=== PATIENT | female | born 1945 | race Caucasian/White ===

== ENCOUNTER 2017-06-20 13:16 | Inpatient (IN) | payer MEDICARE ==
--- NOTE | 2017-06-20 14:05 | ED ---
General Adult HPI - General Chief complaint: Skin/Abscess/Foreign Body Stated complaint: Abscess Time Seen by Provider: 06/20/17 13:46 Source: patient, RN notes reviewed Mode of arrival: ambulatory Limitations: no limitations - History of Present Illness Initial comments: 72-year-old female presents to the emergency department with a chief complaint of abscess to the groin area. Patient states she's had this since the second. Patient states just been getting larger and larger. Patient states that she went to her doctor was referred here. She denies any fever chills. She states she does note some burning with urination but she was recently diagnosed with a UTI. They were concerned due to the size and the discomfort so they thought they should be seen. Patient denies any recent fever, chills, shortness of breath, chest pain, back pain, abdominal pain, nausea vomiting, numbness or tingling, dysuria or hematuria, constipation or diarrhea, headaches or visual changes, or any other current symptoms. - Related Data Home Medications Medication Instructions Recorded Confirmed No Known Home Medications [No 06/20/17 06/20/17 Known Home Medications] Allergies Allergy/AdvReac Type Severity Reaction Status Date / Time iodine Allergy Rash/Hives Verified 06/20/17 13:37 Penicillins Allergy Rash/Hives Verified 06/20/17 13:37 shellfish derived Allergy Rash/Hives Verified 06/20/17 13:37 Sulfa (Sulfonamide Allergy Unknown Verified 06/20/17 13:37 Antibiotics) Childhood aspirin AdvReac Nausea & Verified 06/20/17 13:37 Vomiting codeine AdvReac Unknown Verified 06/20/17 13:37 Review of Systems ROS Statement: Those systems with pertinent positive or pertinent negative responses have been documented in the HPI. ROS Other: All systems not noted in ROS Statement are negative. Past Medical History Past Medical History: Diabetes Mellitus, Hypertension, Musculoskeletal Disorder Additional Past Medical History / Comment(s): scarlet fever History of Any Multi-Drug Resistant Organisms: None Reported Past Surgical History: Section, Cholecystectomy Additional Past Surgical History / Comment(s): oral Past Psychological History: Anxiety, Depression Smoking Status: Former smoker Past Alcohol Use History: None Reported Past Drug Use History: None Reported General Exam Limitations: no limitations General appearance: alert, in no apparent distress ENT exam: Present: normal exam, mucous membranes moist Neck exam: Present: normal inspection. Absent: tenderness, meningismus, lymphadenopathy Respiratory exam: Present: normal lung sounds bilaterally. Absent: respiratory distress, wheezes, rales, rhonchi, stridor Cardiovascular Exam: Present: regular rate, normal rhythm, normal heart sounds. Absent: systolic murmur, diastolic murmur, rubs, gallop, clicks GI/Abdominal exam: Present: soft, normal bowel sounds. Absent: distended, tenderness, guarding, rebound, rigid Rectal exam: Present: other (Patient appears to have an abscess to the right gluteal area.) Extremities exam: Present: normal inspection, full ROM, normal capillary refill. Absent: tenderness, pedal edema, joint swelling, calf tenderness Back exam: Present: normal inspection Neurological exam: Present: alert, oriented X3 Skin exam: Present: warm, dry, intact, normal color. Absent: rash Course Vital Signs 06/20/17 13:21 Temperature 99.2 F Pulse Rate 94 Respiratory 18 Rate Blood Pressure 216/90 O2 Sat by Pulse 96 Oximetry Medical Decision Making - Medical Decision Making 72-year-old female gluteal abscess. At this time the patient's CAT scan is reviewed that does show an extensive phlegmon to the lower buttock that is measuring 4 x 2 cm however no visual obvious abscess is identified. At this time we will admit the patient for IV antibiotics due to her history of diabetes and the extensiveness of this. Dr. Heredia was contacted by [facility] they do agree to the admission. This time we are pending lab work at the time of admission. - Lab Data Result diagrams: 06/20/17 15:19 06/20/17 15:19 Lab Results 06/20/17 06/20/17 06/20/17 Range/Units 15:19 15:19 15:19 WBC 11.9 H (3.8-10.6) k/uL RBC 5.00 (3.80-5.40) m/uL Hgb 14.9 (11.4-16.0) gm/dL Hct 45.6 (34.0-46.0) % MCV 91.2 (80.0-100.0) fL MCH 29.7 (25.0-35.0) pg MCHC 32.6 (31.0-37.0) g/dL RDW 14.9 (11.5-15.5) % Plt Count 277 (150-450) k/uL Neutrophils % 76 % Lymphocytes % 15 % Monocytes % 5 % Eosinophils % 1 % Basophils % 1 % Neutrophils # 9.0 H (1.3-7.7) k/uL Lymphocytes # 1.8 (1.0-4.8) k/uL Monocytes # 0.6 (0-1.0) k/uL Eosinophils # 0.1 (0-0.7) k/uL Basophils # 0.1 (0-0.2) k/uL Sodium 134 L (137-145) mmol/L Potassium 4.1 (3.5-5.1) mmol/L Chloride 99 (98-107) mmol/L Carbon Dioxide 26 (22-30) mmol/L Anion Gap 9 mmol/L BUN 12 (7-17) mg/dL Creatinine 0.50 L (0.52-1.04) mg/dL Est GFR (MDRD) Af Amer >60 (>60 ml/min/1.73 sqM) Est GFR (MDRD) Non-Af >60 (>60 ml/min/1.73 sqM) Glucose 285 H (74-99) mg/dL Plasma Lactic Acid Mohit 1.1 (0.7-2.0) mmol/L Calcium 9.0 (8.4-10.2) mg/dL Total Bilirubin 0.6 (0.2-1.3) mg/dL AST 20 (14-36) U/L ALT 29 (9-52) U/L Alkaline Phosphatase 138 H (38-126) U/L Total Protein 6.5 (6.3-8.2) g/dL Albumin 3.4 L (3.5-5.0) g/dL - Radiology Data Radiology results: report reviewed, image reviewed Disposition Clinical Impression: Abscess and cellulitis of gluteal region Disposition: ADMITTED IP TO THIS [facility] Condition: Stable Referrals: Manasa Reynoso MD [Primary Care Provider] - 1-2 days Decision Date: 06/20/17 Decision Time: 15:29
--- NOTE | 2017-06-20 14:35 | CT ---
EXAMINATION TYPE: CT pelvis wo con DATE OF EXAM: 06/20/2017 COMPARISON: NONE HISTORY: Abscess, pain CT DLP: 574.0 mGycm Automated exposure control for dose reduction was used. TECHNIQUE: Axial images 5 mm thick sections. Study is without intravenous or oral contrast. FINDINGS: Vascular calcifications within the distal aorta and within the iliac vessels. Uterus is normal. Adnexal regions are unremarkable. Urinary bladder appears unremarkable. No free flu id is within the pelvis. Sigmoid colon is redundant. A couple of scattered diverticuli are present. T he appendix within the [id number] is normal. Small bowel loops without contrast appear unremarkabl e. Subcutaneous tissues has some mild inflammatory changes in the medial right buttocks region. There is a more focal density in the perianal region. An underlying abscess however is not identified. Phlegm on is likely present. This area is estimated to measure 4.1 x 2.4 cm, series 4 image 54. This area is less apparent on the coronal images. IMPRESSION: SUSPECTED PHLEGMON IN THE PERIANAL REGION OF THE LOWER BUTTOCKS.
[2017-06-20] MEDS ORDERED: SODIUM CHLORIDE 0.9% 1,000 ML IV STA (14:53)
[2017-06-20] MEDS ORDERED: LEVOFLOXACIN 500MG-D5W PMX 500 MG in DEXTROSE/WATER 1 100ML.BAG IVPB STA (14:53)
[2017-06-20] MEDS ORDERED: CLINDAMYCIN 900 MG in DEXTROSE 5% IN WATER 50 ML IVPB STA ×2 (14:55)
[2017-06-20] MEDS ORDERED: NALOXONE 0.4 MG/ML 1 ML VIAL IV PRN (15:29)
[2017-06-20] MEDS ORDERED: ONDANSETRON 4 MG/2 ML VIAL IVP PRN (15:29)
[2017-06-20 15:31] LABS: Basophils # (A) 0.1 k/uL (0-0.2); Basophils % (A) 1 %; CHCM 34.2; Eosinophils # (A) 0.1 k/uL (0-0.7); Eosinophils % (A) 1 %; HCT 45.6 % (34.0-46.0); HDW 2.69; HGB 14.9 gm/dL (11.4-16.0); Luc # (Auto) 0.27; Luc % (Auto) 2; Lymphocytes # (A) 1.8 k/uL (1.0-4.8); Lymphocytes % (A) 15 %; MCH 29.7 pg (25.0-35.0); MCHC 32.6 g/dL (31.0-37.0); MCV 91.2 fL (80.0-100.0); Mean Platelet Volume 7.1; Monocytes # (A) 0.6 k/uL (0-1.0); Monocytes % (A) 5 %; Neutrophils % (A) 76 %; RDW 14.9 % (11.5-15.5); WBC 11.9 k/uL (3.8-10.6); WBC (Perox) 11.81
[2017-06-20 15:44] LABS: ALT 29 U/L (9-52); AST 20 U/L (14-36); Alkaline Phosphatase 138 U/L (38-126); Anion Gap 9 mmol/L; Blood Urea Nitrogen 12 mg/dL (7-17); Carbon Dioxide 26 mmol/L (22-30); Chloride 99 mmol/L (98-107); Glucose 285 mg/dL (74-99); Non-African American GFR(MDRD) >60 (>60 ml/min/1.73 sqM); Potassium 4.1 mmol/L (3.5-5.1); Sodium 134 mmol/L (137-145); Total Bilirubin 0.6 mg/dL (0.2-1.3); Total Protein 6.5 g/dL (6.3-8.2)
[2017-06-20] MEDS: SODIUM CHLORIDE 0.9% 1,000 ML IV SCH (16:13)
[2017-06-20 17:51] LABS: Glucose,Whole Blood 323 mg/dL (75-99)
[2017-06-20] MEDS: INSULIN LISPRO (humaLOG) 300 UNIT/3 ML VIAL SQ SCH ×2 (17:54→21:32)
[2017-06-20 19:19] LABS: Appearance,Urine Cloudy (Clear); Bacteria,Urine Moderate /hpf; Bilirubin,Urine Negative (Negative); Glucose,Urine (UA) 4+ (Negative); Ketones,Urine 1+ (Negative); Leukocyte Esterase,Urine Large (Negative); Nitrite,Urine Positive (Negative); PH, Urine 5.5 (5.0-8.0); Particle Count 28275; Protein,Urine Trace (Negative); RBC,Urine 6 /hpf (0-5); Specific Gravity,Urine 1.019 (1.001-1.035); Squamous Epithelial Cell,Urine 4 /hpf (0-4); UA Billing (MACRO vs. MICRO) MICRO; Urobilinogen,Urine <2.0 mg/dL (<2.0); WBC,Urine >182 /hpf (0-5)
[2017-06-20 20:13] LABS: Glucose,Whole Blood 307 mg/dL (75-99)
[2017-06-21] MEDS: CLINDAMYCIN 900 MG in DEXTROSE 5% IN WATER 50 ML IVPB SCH ×8 (00:04→17:13)
[2017-06-21] MEDS ORDERED: INSULIN GLARGINE 100 UNIT/ML 10 ML VIAL SQ SCH (00:15)
--- NOTE | 2017-06-21 00:18 | P.HPIM ---
History of Present Illness H&P Date: 06/20/17 Chief Complaint: Right buttock pain Patient is a 72-year-old female with a past medical history of hypertension, diabetes type 2 currently not on any medications presents to the emergency department with a chief complaint of abscess to the groin area. Patient states she found this abscess when she woke up in the morning on 06/15/2017. Patient states just been getting larger and larger. Patient states that she went to her doctor was referred here. She denies any fever chills. She states she does note some burning with urination but she was recently diagnosed with a UTI. They were concerned due to the size and the discomfort so they thought they should be seen. Patient denies any recent fever, chills, shortness of breath, chest pain, back pain, abdominal pain, nausea vomiting, numbness or tingling, dysuria or hematuria, constipation or diarrhea, headaches or visual changes, or any other current symptoms. Patient hasn't been taking any medications for the past 6 months for diabetes. No recent illnesses. No sick contacts at home. Review of Systems Constitutional: Patient denies any fever or chills . No generalized weakness or weight loss. Abdomen: Patient denied nausea vomiting and diarrhea and abdominal pain. Cardiovascular: Patient denies any chest pain or short of breath no palpitations. Respiratory: patient denied any cough is from production. No shortness of breath Neurologic: Patient denied any numbness or tingling headache. Musculoskeletal: Patient denies any complaints of joint swelling or deformity. Skin: Negative Psychiatric: Negative Endocrine: No heat or cold intolerance. No recent weight gain. Genitourinary: No dysuria or hematuria. All other 14 point ROS negative except the above Past Medical History Past Medical History: Diabetes Mellitus, Hypertension, Musculoskeletal Disorder Additional Past Medical History / Comment(s): scarlet fever History of Any Multi-Drug Resistant Organisms: None Reported Past Surgical History: Section, Cholecystectomy Additional Past Surgical History / Comment(s): oral Past Psychological History: Anxiety, Depression Smoking Status: Former smoker Past Alcohol Use History: None Reported Past Drug Use History: None Reported - Past Family History Father Additional Family Medical History / Comment(s): maleria his mom had dm Mother Family Medical History: Chest Pain / Angina, CVA/TIA Additional Family Medical History / Comment(s): nephritis. buristis Medications and Allergies Home Medications Medication Instructions Recorded Confirmed Type No Known Home Medications [No 06/20/17 06/20/17 History Known Home Medications] Allergies Allergy/AdvReac Type Severity Reaction Status Date / Time iodine Allergy Rash/Hives Verified 06/20/17 13:37 Penicillins Allergy Rash/Hives Verified 06/20/17 13:37 shellfish derived Allergy Rash/Hives Verified 06/20/17 13:37 Sulfa (Sulfonamide Allergy Unknown Verified 06/20/17 13:37 Antibiotics) Childhood aspirin AdvReac Nausea & Verified 06/20/17 13:37 Vomiting codeine AdvReac Unknown Verified 06/20/17 13:37 Physical Exam Vitals: Vital Signs Temp Pulse Pulse Resp BP BP Pulse Ox 06/20/17 17:51 99.5 F 85 16 142/62 96 06/20/17 16:51 98.0 F 79 18 171/73 97 06/20/17 16:14 98.8 F 84 18 183/79 98 06/20/17 13:21 99.2 F 94 18 216/90 96 Intake and Output 06/20/17 06/20/17 06/20/17 06:59 14:59 22:59 Other: Voiding Method Bedside Commode Weight 76.204 kg Patient Weight 06/21/17 06:59 Weight 76.204 kg PHYSICAL EXAMINATION: Patient is lying in the bed comfortably, no acute distress, awake alert and oriented.. HEENT: Normocephalic. Neck is supple. Pupils reactive. Nostrils clear. Oral cavity is moist. Ears reveal no drainage. Neck reveals no JVD, carotid bruits, or thyromegaly. CHEST EXAMINATION: Trachea is central. Symmetrical expansion. Lung dias clear to auscultation and percussion. CARDIAC: Normal S1, S2 with no gallops. No murmurs ABDOMEN: Soft. Bowel sounds normal. No organomegaly. No abdominal bruits. Patient does have 4 x 4 centimeters indurated area on the right lower medial buttock near the radial area. With surrounding redness and warmth. Minimal drainage. Extremities: reveal no edema. No clubbing or cyanosis Neurologically awake, alert, oriented x3 with well-coordinated movements. No focal deficits noted Skin: No rash or skin lesions. Psychiatric: Operative. Nonsuicidal Musculoskeletal: No joint swelling or deformity. Normal range of motion. Results CBC & Chem 7: 06/20/17 15:19 06/20/17 15:19 Labs: Abnormal Lab Results - Last 24 Hours (Table) 06/20/17 06/20/17 06/20/17 Range/Units 15:19 15:19 17:49 WBC 11.9 H (3.8-10.6) k/uL Neutrophils # 9.0 H (1.3-7.7) k/uL Sodium 134 L (137-145) mmol/L Creatinine 0.50 L (0.52-1.04) mg/dL Glucose 285 H (74-99) mg/dL POC Glucose (mg/dL) 323 H (75-99) mg/dL Alkaline Phosphatase 138 H (38-126) U/L Albumin 3.4 L (3.5-5.0) g/dL Urine Appearance (Clear) Urine Protein (Negative) Urine Glucose (UA) (Negative) Urine Ketones (Negative) Urine Blood (Negative) Urine Nitrite (Negative) Ur Leukocyte Esterase (Negative) Urine RBC (0-5) /hpf Urine WBC (0-5) /hpf Urine WBC Clumps (None) /hpf Urine Bacteria (None) /hpf 06/20/17 06/20/17 Range/Units 19:00 20:11 WBC (3.8-10.6) k/uL Neutrophils # (1.3-7.7) k/uL Sodium (137-145) mmol/L Creatinine (0.52-1.04) mg/dL Glucose (74-99) mg/dL POC Glucose (mg/dL) 307 H (75-99) mg/dL Alkaline Phosphatase (38-126) U/L Albumin (3.5-5.0) g/dL Urine Appearance Cloudy H (Clear) Urine Protein Trace H (Negative) Urine Glucose (UA) 4+ H (Negative) Urine Ketones 1+ H (Negative) Urine Blood Trace H (Negative) Urine Nitrite Positive H (Negative) Ur Leukocyte Esterase Large H (Negative) Urine RBC 6 H (0-5) /hpf Urine WBC >182 H (0-5) /hpf Urine WBC Clumps Few H (None) /hpf Urine Bacteria Moderate H (None) /hpf Assessment and Plan Assessment: #1 acute right buttock abscess with surrounding cellulitis #2 acute urinary tract infection #3 diabetes type 2 uncontrolled with medication noncompliance #5 hyperglycemia #5 hypertension #6 obesity with BMI 33.9 Plan: Patient be continued on clindamycin. Patient was given a dose of levofloxacin and clindamycin in the ER. We will consult general surgery for possible I&D of the abscess. Will check HbA1c. Continue the insulin sliding scale and start on Lantus 20 units daily at bedtime and follow closely. Patient was counseled. Further recommendations based on the clinical course. Time with Patient: Greater than 30
[2017-06-21] MEDS: SODIUM CHLORIDE 0.9% 1,000 ML IV SCH ×3 (03:30→20:14)
[2017-06-21] MEDS: HYDROmorphone 1 MG/ML 1 ML SYRINGE IVP PRN ×2 (03:30→20:13)
[2017-06-21 07:41] LABS: Glucose,Whole Blood 189 mg/dL (75-99)
[2017-06-21] MEDS: INSULIN LISPRO (humaLOG) 300 UNIT/3 ML VIAL SQ SCH ×2 (07:51→12:27)
[2017-06-21] MEDS: HEPARIN SODIUM,PORCINE 5,000 UNIT/ML 1 ML VIAL SQ SCH ×2 (07:51→20:14)
[2017-06-21] MEDS: PANTOPRAZOLE 40 MG/10 ML VIAL IV SCH (07:51)
[2017-06-21 10:10] LABS: ALT 31 U/L (9-52); AST 22 U/L (14-36); Alkaline Phosphatase 123 U/L (38-126); Anion Gap 7 mmol/L; Blood Urea Nitrogen 8 mg/dL (7-17); Calcium 8.8 mg/dL (8.4-10.2); Carbon Dioxide 26 mmol/L (22-30); Chloride 104 mmol/L (98-107); Glucose 262 mg/dL (74-99); Non-African American GFR(MDRD) >60 (>60 ml/min/1.73 sqM); Potassium 4.2 mmol/L (3.5-5.1); Sodium 137 mmol/L (137-145); Total Bilirubin 0.4 mg/dL (0.2-1.3); Total Protein 5.6 g/dL (6.3-8.2)
[2017-06-21 10:30] LABS: Basophils # (A) 0.1 k/uL (0-0.2); Basophils % (A) 1 %; CH 31.1; CHCM 33.6; Eosinophils # (A) 0.1 k/uL (0-0.7); Eosinophils % (A) 1 %; HCT 39.9 % (34.0-46.0); HDW 2.88; HGB 12.9 gm/dL (11.4-16.0); Luc % (Auto) 3; Lymphocytes # (A) 2.2 k/uL (1.0-4.8); Lymphocytes % (A) 21 %; MCH 30.1 pg (25.0-35.0); MCHC 32.3 g/dL (31.0-37.0); MCV 92.9 fL (80.0-100.0); Mean Platelet Volume 6.5; Monocytes # (A) 0.7 k/uL (0-1.0); Monocytes % (A) 6 %; Neutrophils % (A) 68 %; RDW 13.2 % (11.5-15.5); WBC 10.3 k/uL (3.8-10.6)
[2017-06-21] MEDS ORDERED: LIDOCAINE 1% INJ 10MG/ML (20 ML MDV) SQ ONE (12:13)
[2017-06-21 12:29] LABS: Glucose,Whole Blood 260 mg/dL (75-99)
[2017-06-21] MEDS: ACETAMINOPHEN TAB 325 MG TAB PO PRN (14:49)
--- NOTE | 2017-06-21 15:39 | P.GSCN ---
<Lorri Taylor M - Last Filed: 06/21/17 15:21> History of Present Illness Consult date: 06/21/17 History of present illness: 72-year-old female being seen at the request of the attending for surgical eval for a abscess on the right gluteal area . The left gluteal area moderate amount of edema noted with redness skin intact Patient states symptoms have been ongoing for the past several days. According to the patient she has been experiencing pressure in the vaginal area and noted a significant amount of right groin swelling with tenderness with an odor. Patient stated that she became concerned because the area became larger and more painful. Patient states that she did go to her physician and was advised to come to the emergency room given the above-mentioned symptoms. Patient states that she has been having some burning with urination was briefly told she had a UTI which she had been receiving treatment for patient denies any prior episodes Review of Systems Essentially unremarkable except as mentioned in the present illness Past Medical History Past Medical History: Diabetes Mellitus, Hypertension, Musculoskeletal Disorder Additional Past Medical History / Comment(s): scarlet fever History of Any Multi-Drug Resistant Organisms: None Reported Past Surgical History: Section, Cholecystectomy Additional Past Surgical History / Comment(s): oral Past Anesthesia/Blood Transfusion Reactions: Previous Problems w/ Anesthesia Additional Past Anesthesia/Blood Transfusion Reaction / Comm: " difficulty waking" "i don't come out of aa well" Past Psychological History: Anxiety, Depression Smoking Status: Former smoker Past Alcohol Use History: None Reported Past Drug Use History: None Reported - Past Family History Father Additional Family Medical History / Comment(s): maleria his mom had dm Mother Family Medical History: Chest Pain / Angina, CVA/TIA Additional Family Medical History / Comment(s): nephritis. buristis Medications and Allergies Home Medications Medication Instructions Recorded Confirmed Type No Known Home Medications [No 06/20/17 06/20/17 History Known Home Medications] Allergies Allergy/AdvReac Type Severity Reaction Status Date / Time iodine Allergy Rash/Hives Verified 06/20/17 13:37 Penicillins Allergy Rash/Hives Verified 06/20/17 13:37 shellfish derived Allergy Rash/Hives Verified 06/20/17 13:37 Sulfa (Sulfonamide Allergy Unknown Verified 06/20/17 13:37 Antibiotics) Childhood aspirin AdvReac Nausea & Verified 06/20/17 13:37 Vomiting codeine AdvReac Unknown Verified 06/20/17 13:37 Surgical - Exam Vital Signs Temp Pulse Resp BP Pulse Ox 99.2 F 94 18 216/90 96 06/20/17 13:21 06/20/17 13:21 06/20/17 13:21 06/20/17 13:21 06/20/17 13:21 GENERAL APPEARANCE: 72-year-old female looking older than stated age patient is alert, oriented, in no acute distress. VITAL SIGNS: Reviewed HEENT: Head is normocephalic and atraumatic. Pupils are equal and reactive. The nares are patent. Oropharynx is clear without lesions. NECK: Supple without lymphadenopathy. Traches midline. HEART: S1, S2. Regular rate and rhythm. No murmur noted LUNGS: No crackles or wheezes are heard. ABDOMEN: Soft, obese to nontender, nondistended with good bowel sounds. No peritoneal signs. No palpable organomegaly or masses. Rectum right gluteal abscess noted. odor noted. With cellulitis Skin skin excoriation noted to the skin folds of the abdominal wall inner groin area EXTREMITIES: Normal skin color and turgor. No cyanosis, rash, ulceration, clubbing or edema. Radial pedal pulses are 2/4 bilaterally. NEUROLOGICAL: No focal deficits. Strength and sensation are grossly intact. Results - Labs 06/21/17 09:36 06/21/17 09:36 Abnormal Lab Results - Last 24 Hours (Table) 06/20/17 06/20/17 06/20/17 Range/Units 15:19 15:19 17:49 WBC 11.9 H (3.8-10.6) k/uL Neutrophils # 9.0 H (1.3-7.7) k/uL Sodium 134 L (137-145) mmol/L Creatinine 0.50 L (0.52-1.04) mg/dL Glucose 285 H (74-99) mg/dL POC Glucose (mg/dL) 323 H (75-99) mg/dL Alkaline Phosphatase 138 H (38-126) U/L Total Protein (6.3-8.2) g/dL Albumin 3.4 L (3.5-5.0) g/dL Urine Appearance (Clear) Urine Protein (Negative) Urine Glucose (UA) (Negative) Urine Ketones (Negative) Urine Blood (Negative) Urine Nitrite (Negative) Ur Leukocyte Esterase (Negative) Urine RBC (0-5) /hpf Urine WBC (0-5) /hpf Urine WBC Clumps (None) /hpf Urine Bacteria (None) /hpf 06/20/17 06/20/17 06/21/17 Range/Units 19:00 20:11 07:34 WBC (3.8-10.6) k/uL Neutrophils # (1.3-7.7) k/uL Sodium (137-145) mmol/L Creatinine (0.52-1.04) mg/dL Glucose (74-99) mg/dL POC Glucose (mg/dL) 307 H 189 H (75-99) mg/dL Alkaline Phosphatase (38-126) U/L Total Protein (6.3-8.2) g/dL Albumin (3.5-5.0) g/dL Urine Appearance Cloudy H (Clear) Urine Protein Trace H (Negative) Urine Glucose (UA) 4+ H (Negative) Urine Ketones 1+ H (Negative) Urine Blood Trace H (Negative) Urine Nitrite Positive H (Negative) Ur Leukocyte Esterase Large H (Negative) Urine RBC 6 H (0-5) /hpf Urine WBC >182 H (0-5) /hpf Urine WBC Clumps Few H (None) /hpf Urine Bacteria Moderate H (None) /hpf 06/21/17 06/21/17 Range/Units 09:36 12:27 WBC (3.8-10.6) k/uL Neutrophils # (1.3-7.7) k/uL Sodium (137-145) mmol/L Creatinine 0.50 L (0.52-1.04) mg/dL Glucose 262 H (74-99) mg/dL POC Glucose (mg/dL) 260 H (75-99) mg/dL Alkaline Phosphatase (38-126) U/L Total Protein 5.6 L (6.3-8.2) g/dL Albumin 2.8 L (3.5-5.0) g/dL Urine Appearance (Clear) Urine Protein (Negative) Urine Glucose (UA) (Negative) Urine Ketones (Negative) Urine Blood (Negative) Urine Nitrite (Negative) Ur Leukocyte Esterase (Negative) Urine RBC (0-5) /hpf Urine WBC (0-5) /hpf Urine WBC Clumps (None) /hpf Urine Bacteria (None) /hpf Microbiology - Last 24 Hours (Table) 06/20/17 19:00 Urine Culture - Preliminary Urine,Voided Diabetes panel 06/20/17 06/21/17 Range/Units 15:19 09:36 Sodium 134 L 137 (137-145) mmol/L Potassium 4.1 4.2 (3.5-5.1) mmol/L Chloride 99 104 (98-107) mmol/L Carbon Dioxide 26 26 (22-30) mmol/L BUN 12 8 (7-17) mg/dL Creatinine 0.50 L 0.50 L (0.52-1.04) mg/dL Glucose 285 H 262 H (74-99) mg/dL Calcium 9.0 8.8 (8.4-10.2) mg/dL AST 20 22 (14-36) U/L ALT 29 31 (9-52) U/L Alkaline Phosphatase 138 H 123 (38-126) U/L Total Protein 6.5 5.6 L (6.3-8.2) g/dL Albumin 3.4 L 2.8 L (3.5-5.0) g/dL Calcium panel 06/20/17 06/21/17 Range/Units 15:19 09:36 Calcium 9.0 8.8 (8.4-10.2) mg/dL Albumin 3.4 L 2.8 L (3.5-5.0) g/dL Pituitary panel 06/20/17 06/21/17 Range/Units 15:19 09:36 Sodium 134 L 137 (137-145) mmol/L Potassium 4.1 4.2 (3.5-5.1) mmol/L Chloride 99 104 (98-107) mmol/L Carbon Dioxide 26 26 (22-30) mmol/L BUN 12 8 (7-17) mg/dL Creatinine 0.50 L 0.50 L (0.52-1.04) mg/dL Glucose 285 H 262 H (74-99) mg/dL Calcium 9.0 8.8 (8.4-10.2) mg/dL Adrenal panel 06/20/17 06/21/17 Range/Units 15:19 09:36 Sodium 134 L 137 (137-145) mmol/L Potassium 4.1 4.2 (3.5-5.1) mmol/L Chloride 99 104 (98-107) mmol/L Carbon Dioxide 26 26 (22-30) mmol/L BUN 12 8 (7-17) mg/dL Creatinine 0.50 L 0.50 L (0.52-1.04) mg/dL Glucose 285 H 262 H (74-99) mg/dL Calcium 9.0 8.8 (8.4-10.2) mg/dL Total Bilirubin 0.6 0.4 (0.2-1.3) mg/dL AST 20 22 (14-36) U/L ALT 29 31 (9-52) U/L Alkaline Phosphatase 138 H 123 (38-126) U/L Total Protein 6.5 5.6 L (6.3-8.2) g/dL Albumin 3.4 L 2.8 L (3.5-5.0) g/dL Assessment and Plan Plan: Impression Present on admission vaginal pain suspect due to right gluteal abscess with surrounding cellulitis CAT scan pelvis suspected phlefmon in the perianal region of the lower buttocks Morbid obesity BMI 33 Type 2 diabetes uncontrolled medication noncompliance Hypertension Present on admission UTI Plan right gluteal abscess to be incised and drained IV antibiotics as ordered DVT and GI prophylaxis Further surgical recommendations pending the timing of the incision and drainage of the right gluteal abscess to be determined by surgeon The above impression and plan of care have been discussed and directed by signing physician. Lorri Taylor nurse practitioner acting as scribe for signing physician. <[place] - Last Filed: 06/21/17 18:04> Surgical - Exam Vital Signs Temp Pulse Resp BP Pulse Ox 99.2 F 94 18 216/90 96 06/20/17 13:21 06/20/17 13:21 06/20/17 13:21 06/20/17 13:21 06/20/17 13:21 Results - Labs 06/21/17 09:36 06/21/17 09:36 Abnormal Lab Results - Last 24 Hours (Table) 06/20/17 06/20/17 06/21/17 Range/Units 19:00 20:11 07:34 Creatinine (0.52-1.04) mg/dL Glucose (74-99) mg/dL POC Glucose (mg/dL) 307 H 189 H (75-99) mg/dL Total Protein (6.3-8.2) g/dL Albumin (3.5-5.0) g/dL Urine Appearance Cloudy H (Clear) Urine Protein Trace H (Negative) Urine Glucose (UA) 4+ H (Negative) Urine Ketones 1+ H (Negative) Urine Blood Trace H (Negative) Urine Nitrite Positive H (Negative) Ur Leukocyte Esterase Large H (Negative) Urine RBC 6 H (0-5) /hpf Urine WBC >182 H (0-5) /hpf Urine WBC Clumps Few H (None) /hpf Urine Bacteria Moderate H (None) /hpf 06/21/17 06/21/17 06/21/17 Range/Units 09:36 12:27 16:49 Creatinine 0.50 L (0.52-1.04) mg/dL Glucose 262 H (74-99) mg/dL POC Glucose (mg/dL) 260 H 202 H (75-99) mg/dL Total Protein 5.6 L (6.3-8.2) g/dL Albumin 2.8 L (3.5-5.0) g/dL Urine Appearance (Clear) Urine Protein (Negative) Urine Glucose (UA) (Negative) Urine Ketones (Negative) Urine Blood (Negative) Urine Nitrite (Negative) Ur Leukocyte Esterase (Negative) Urine RBC (0-5) /hpf Urine WBC (0-5) /hpf Urine WBC Clumps (None) /hpf Urine Bacteria (None) /hpf Microbiology - Last 24 Hours (Table) 06/20/17 15:19 Blood Culture - Preliminary Blood No Growth after 24 hours 06/20/17 19:00 Urine Culture - Preliminary Urine,Voided Diabetes panel 06/21/17 Range/Units 09:36 Sodium 137 (137-145) mmol/L Potassium 4.2 (3.5-5.1) mmol/L Chloride 104 (98-107) mmol/L Carbon Dioxide 26 (22-30) mmol/L BUN 8 (7-17) mg/dL Creatinine 0.50 L (0.52-1.04) mg/dL Glucose 262 H (74-99) mg/dL Calcium 8.8 (8.4-10.2) mg/dL AST 22 (14-36) U/L ALT 31 (9-52) U/L Alkaline Phosphatase 123 (38-126) U/L Total Protein 5.6 L (6.3-8.2) g/dL Albumin 2.8 L (3.5-5.0) g/dL Calcium panel 06/21/17 Range/Units 09:36 Calcium 8.8 (8.4-10.2) mg/dL Albumin 2.8 L (3.5-5.0) g/dL Pituitary panel 06/21/17 Range/Units 09:36 Sodium 137 (137-145) mmol/L Potassium 4.2 (3.5-5.1) mmol/L Chloride 104 (98-107) mmol/L Carbon Dioxide 26 (22-30) mmol/L BUN 8 (7-17) mg/dL Creatinine 0.50 L (0.52-1.04) mg/dL Glucose 262 H (74-99) mg/dL Calcium 8.8 (8.4-10.2) mg/dL Adrenal panel 06/21/17 Range/Units 09:36 Sodium 137 (137-145) mmol/L Potassium 4.2 (3.5-5.1) mmol/L Chloride 104 (98-107) mmol/L Carbon Dioxide 26 (22-30) mmol/L BUN 8 (7-17) mg/dL Creatinine 0.50 L (0.52-1.04) mg/dL Glucose 262 H (74-99) mg/dL Calcium 8.8 (8.4-10.2) mg/dL Total Bilirubin 0.4 (0.2-1.3) mg/dL AST 22 (14-36) U/L ALT 31 (9-52) U/L Alkaline Phosphatase 123 (38-126) U/L Total Protein 5.6 L (6.3-8.2) g/dL Albumin 2.8 L (3.5-5.0) g/dL Assessment and Plan Plan: Incision and drainage performed at the bedside today.
[2017-06-21 17:05] LABS: Glucose,Whole Blood 202 mg/dL (75-99)
[2017-06-21] MEDS: INSULIN ASPART 100 UNIT/ML 1 ML 10 ML VIAL SQ SCH ×3 (17:12→21:18)
--- NOTE | 2017-06-21 18:00 | P.PN ---
Subjective Progress Note Date: 06/21/17 Progress note being dictated for Dr. Heredia. Interval history:Patient is a 72-year-old female with a past medical history of hypertension, diabetes type 2 currently not on any medications presents to the emergency department with a chief complaint of abscess to the groin area. Patient states she found this abscess when she woke up in the morning on 2016. Patient states just been getting larger and larger. Patient states that she went to her doctor was referred here. She denies any fever chills. She states she does note some burning with urination but she was recently diagnosed with a UTI. They were concerned due to the size and the discomfort so they thought they should be seen. Patient denies any recent fever, chills, shortness of breath, chest pain, back pain, abdominal pain, nausea vomiting, numbness or tingling, dysuria or hematuria, constipation or diarrhea, headaches or visual changes, or any other current symptoms. Patient hasn't been taking any medications for the past 6 months for diabetes. No recent illnesses. No sick contacts at home. 06/21/2017. Evaluated by surgery and scheduled for I&D at bedside. Pain controlled at rest. Blood sugars elevated ranging from 180s to 200s. T-max 99.2, normal WBC. Denies chest pain, palpitations or increasing shortness of breath. Objective - Vital Signs Vital signs: Vital Signs Temp 98.7 F 06/21/17 15:00 Pulse 70 06/21/17 15:00 Resp 16 06/21/17 15:00 BP 182/76 06/21/17 15:00 Pulse Ox 95 06/21/17 15:00 Intake & Output 06/20/17 06/21/17 06/21/17 18:59 06:59 18:59 Intake Total 500 200 Balance 500 200 Weight 76.204 kg Intake: Oral 500 200 Other: Voiding Method Bedside Commode Toilet # Voids 2 1 # Bowel Movements 1 0 - Exam Patient is lying in the bed comfortably, no acute distress, awake alert and oriented.. HEENT: Normocephalic. Neck is supple. Pupils reactive. Nostrils clear. Oral cavity is moist. Ears reveal no drainage. Neck reveals no JVD, carotid bruits, or thyromegaly. CHEST EXAMINATION: Trachea is central. Symmetrical expansion. Lung dias clear to auscultation and percussion. CARDIAC: Normal S1, S2 with no gallops. No murmurs ABDOMEN: Soft. Bowel sounds normal. No organomegaly. No abdominal bruits. Patient does have 4 x 4 centimeters indurated area, excoriated. on the right lower medial buttock near the radial area. With surrounding redness and warmth. Minimal drainage. Extremities: reveal no edema. No clubbing or cyanosis Neurologically awake, alert, oriented x3 with well-coordinated movements. No focal deficits noted Skin: No rash or skin lesions. Psychiatric: Operative. Nonsuicidal Musculoskeletal: No joint swelling or deformity. Normal range of motion. Microbiology 06/20/17 15:19 Blood Blood Culture - Preliminary No Growth after 24 hours 06/20/17 19:00 Urine,Voided Urine Culture - Preliminary - Labs CBC & Chem 7: 06/21/17 09:36 06/21/17 09:36 Labs: Abnormal Lab Results - Last 24 Hours (Table) 06/20/17 06/20/17 06/21/17 Range/Units 19:00 20:11 07:34 Creatinine (0.52-1.04) mg/dL Glucose (74-99) mg/dL POC Glucose (mg/dL) 307 H 189 H (75-99) mg/dL Total Protein (6.3-8.2) g/dL Albumin (3.5-5.0) g/dL Urine Appearance Cloudy H (Clear) Urine Protein Trace H (Negative) Urine Glucose (UA) 4+ H (Negative) Urine Ketones 1+ H (Negative) Urine Blood Trace H (Negative) Urine Nitrite Positive H (Negative) Ur Leukocyte Esterase Large H (Negative) Urine RBC 6 H (0-5) /hpf Urine WBC >182 H (0-5) /hpf Urine WBC Clumps Few H (None) /hpf Urine Bacteria Moderate H (None) /hpf 06/21/17 06/21/17 06/21/17 Range/Units 09:36 12:27 16:49 Creatinine 0.50 L (0.52-1.04) mg/dL Glucose 262 H (74-99) mg/dL POC Glucose (mg/dL) 260 H 202 H (75-99) mg/dL Total Protein 5.6 L (6.3-8.2) g/dL Albumin 2.8 L (3.5-5.0) g/dL Urine Appearance (Clear) Urine Protein (Negative) Urine Glucose (UA) (Negative) Urine Ketones (Negative) Urine Blood (Negative) Urine Nitrite (Negative) Ur Leukocyte Esterase (Negative) Urine RBC (0-5) /hpf Urine WBC (0-5) /hpf Urine WBC Clumps (None) /hpf Urine Bacteria (None) /hpf Microbiology - Last 24 Hours (Table) 06/20/17 15:19 Blood Culture - Preliminary Blood No Growth after 24 hours 06/20/17 19:00 Urine Culture - Preliminary Urine,Voided Assessment and Plan Assessment: #1 acute right buttock/gluteal abscess with surrounding cellulitis #2 acute urinary tract infection, present on admission #3 diabetes type 2 uncontrolled with medication noncompliance #5 hyperglycemia #5 hypertension #6 obesity with BMI 33.9 Plan: Continue on current medication regime ,monitoring and symptomatic treatment. Maintain IV antibiotics, I&D pending with culture to be obtained. Pain management. Pre-meal insulin added to med regime ,Close monitoring of Accu -Cheks The impression and plan of care has been dictated as directed. : I performed a history and examination of this patient, discussed the same with the dictator. I agree with the dictator's note ,documented as a scribe. Any additional findings or plans will be noted.
--- NOTE | 2017-06-21 18:06 | P.OP ---
Date of Procedure: 06/21/17 Preoperative Diagnosis: Perianal abscess Postoperative Diagnosis: Perianal abscess Procedure(s) Performed: Surgeon and drainage of perianal abscess Anesthesia: local Surgeon: New Shay Estimated Blood Loss (ml): 10 Pathology: other (Wound culture) Condition: stable Disposition: PACU Description of Procedure: The patient's placed on the bedside in the lateral position. Her left perianal area was prepped and draped in sterile fashion. The area is anesthetized with 1 % local Xylocaine. Using 11 blade a cruciate incision was made. Approximately 10 mL of bloody purulent fluid was removed. The wound was cultured. Sterile dressings was applied. Patient tolerated procedure well.
[2017-06-21 21:10] LABS: Glucose,Whole Blood 172 mg/dL (75-99)
[2017-06-21] MEDS: INSULIN DETEMIR 100 UNIT/ML 10 ML VIAL SQ SCH (21:18)
[2017-06-21] MEDS ORDERED: VANCOMYCIN IV PER PHARMACY 1 EACH MISC MISCELLANE PRN (22:16)
[2017-06-21] MEDS: VANCOMYCIN 1,500 MG in SODIUM CHLORIDE 0.9% 250 ML IVPB SCH (22:42)
[2017-06-22] MEDS: ACETAMINOPHEN TAB 325 MG TAB PO PRN ×2 (05:00→21:10)
[2017-06-22 07:09] LABS: Glucose,Whole Blood 193 mg/dL (75-99)
[2017-06-22] MEDS: PANTOPRAZOLE 40 MG/10 ML VIAL IV SCH (07:42)
[2017-06-22] MEDS: HEPARIN SODIUM,PORCINE 5,000 UNIT/ML 1 ML VIAL SQ SCH ×2 (07:42→21:06)
[2017-06-22] MEDS: INSULIN ASPART 100 UNIT/ML 1 ML 10 ML VIAL SQ SCH ×7 (07:42→21:07)
[2017-06-22] MEDS: SODIUM CHLORIDE 0.9% 1,000 ML IV SCH ×2 (07:43→14:11)
[2017-06-22 09:44] VITALS: BMI 33.9
[2017-06-22] MEDS: VANCOMYCIN 1,500 MG in SODIUM CHLORIDE 0.9% 250 ML IVPB SCH ×2 (11:50→23:08)
[2017-06-22 13:23] LABS: Glucose,Whole Blood 157 mg/dL (75-99)
[2017-06-22] MEDS ORDERED: HYDROcodone/APAP 5-325MG 1 EACH TAB PO PRN (14:57)
--- NOTE | 2017-06-22 15:03 | P.PN ---
Subjective Progress Note Date: 06/22/17 72-year-old female seen and examined resting in bed. Patient is status post done at bedside incision and drainage of left perianal abscess.. Wound cultures pending. Patient does report tenderness to the affected area Objective - Vital Signs Vital signs: Vital Signs Temp 97.6 F 06/22/17 14:50 Pulse 73 06/22/17 14:50 Resp 18 06/22/17 14:50 BP 185/84 06/22/17 14:50 Pulse Ox 94 L 06/22/17 14:50 Intake & Output 06/21/17 06/22/17 06/22/17 18:59 06:59 18:59 Intake Total 200 700 Balance 200 700 Weight 76.204 kg Intake: Oral 200 700 Other: Voiding Method Toilet Toilet # Voids 1 1 2 # Bowel Movements 0 - Exam Physical exam 72-year-old female resting in bed states less tenderness to the affected site Heart S1-S2 audible and regular Lungs essentially clear adequate air movement Abdomen obese soft nontender incontinent of urine reports no nausea vomiting nondistended right buttock lower 4 x 4 centimeters indurated area with surrounding redness less edematous no drainage from puncture site no odor noted no stool Extremities no edema noted - Labs CBC & Chem 7: 06/21/17 09:36 06/21/17 09:36 Labs: Abnormal Lab Results - Last 24 Hours (Table) 06/21/17 06/21/17 06/21/17 Range/Units 09:36 16:49 20:27 POC Glucose (mg/dL) 202 H 172 H (75-99) mg/dL Hemoglobin A1c 11.0 H (4.0-6.0) % 06/22/17 06/22/17 Range/Units 07:06 12:38 POC Glucose (mg/dL) 193 H 157 H (75-99) mg/dL Hemoglobin A1c (4.0-6.0) % Microbiology - Last 24 Hours (Table) 06/20/17 15:16 Blood Culture Gram Stain - Preliminary Blood Blood Culture - Preliminary Coagulase Negative Staph 06/21/17 17:00 Gram Stain - Preliminary Buttock Wound Culture - Preliminary 06/21/17 17:00 Anaerobic Culture - Preliminary Buttock 06/20/17 19:00 Urine Culture - Final Urine,Voided 06/20/17 15:19 Blood Culture - Preliminary Blood No Growth after 24 hours Assessment and Plan Plan: Impression Present on admission vaginal pain suspect due to right gluteal abscess with surrounding cellulitis CAT scan pelvis suspected phlefmon in the perianal region of the lower buttocks Morbid obesity BMI 33 Type 2 diabetes uncontrolled medication noncompliance Hypertension Present on admission UTI Plan Wound care as ordered Shower daily follow-up on pending wound cultures IV antibiotics as ordered DVT and GI prophylaxis Further surgical recommendations pending The above impression and plan of care have been discussed and directed by signing physician. Lorri Taylor nurse practitioner acting as scribe for signing physician.
[2017-06-22 17:26] LABS: Glucose,Whole Blood 159 mg/dL (75-99)
[2017-06-22 20:53] LABS: Glucose,Whole Blood 98 mg/dL (75-99)
[2017-06-22] MEDS: INSULIN DETEMIR 100 UNIT/ML 10 ML VIAL SQ SCH (21:06)
[2017-06-23] MEDS: SODIUM CHLORIDE 0.9% 1,000 ML IV SCH ×3 (03:49→21:12)
[2017-06-23 07:35] LABS: Glucose,Whole Blood 203 mg/dL (75-99)
[2017-06-23] MEDS: HEPARIN SODIUM,PORCINE 5,000 UNIT/ML 1 ML VIAL SQ SCH ×2 (07:45→21:12)
[2017-06-23] MEDS: PANTOPRAZOLE 40 MG TABLET PO SCH (07:46)
[2017-06-23] MEDS: INSULIN ASPART 100 UNIT/ML 1 ML 10 ML VIAL SQ SCH ×7 (07:46→21:22)
[2017-06-23 08:53] LABS: Basophils # (A) 0.1 k/uL (0-0.2); Basophils % (A) 1 %; CHCM 33.4; Eosinophils # (A) 0.2 k/uL (0-0.7); Eosinophils % (A) 3 %; HCT 42.8 % (34.0-46.0); HDW 2.77; HGB 14.1 gm/dL (11.4-16.0); Luc # (Auto) 0.24; Luc % (Auto) 3; Lymphocytes % (A) 21 %; MCH 29.7 pg (25.0-35.0); MCHC 32.9 g/dL (31.0-37.0); MCV 90.4 fL (80.0-100.0); Mean Platelet Volume 7.4; Monocytes # (A) 0.5 k/uL (0-1.0); Monocytes % (A) 5 %; Neutrophils # (A) 6.2 k/uL (1.3-7.7); Neutrophils % (A) 67 %; RBC 4.73 m/uL (3.80-5.40); RDW 14.6 % (11.5-15.5); WBC 9.2 k/uL (3.8-10.6); WBC (Perox) 8.63
[2017-06-23 09:08] LABS: ALT 34 U/L (9-52); AST 22 U/L (14-36); Alkaline Phosphatase 139 U/L (38-126); Anion Gap 8 mmol/L; Blood Urea Nitrogen 12 mg/dL (7-17); Calcium 8.9 mg/dL (8.4-10.2); Carbon Dioxide 24 mmol/L (22-30); Chloride 105 mmol/L (98-107); Glucose 251 mg/dL (74-99); Non-African American GFR(MDRD) >60 (>60 ml/min/1.73 sqM); Potassium 4.3 mmol/L (3.5-5.1); Sodium 137 mmol/L (137-145); Total Bilirubin 0.3 mg/dL (0.2-1.3); Total Protein 6.4 g/dL (6.3-8.2)
[2017-06-23] MEDS: VANCOMYCIN 1,500 MG in SODIUM CHLORIDE 0.9% 250 ML IVPB SCH ×2 (11:11→21:12)
[2017-06-23 12:14] LABS: Glucose,Whole Blood 161 mg/dL (75-99)
--- NOTE | 2017-06-23 14:11 | P.PN ---
Subjective Progress Note Date: 06/23/17 72-year-old female seen and examined resting in bed. Patient is status post done at bedside incision and drainage of left perianal abscess.. Wound cultures pending. Patient does report less tenderness to the affected area Objective - Vital Signs Vital signs: Vital Signs Temp 97.9 F 06/23/17 06:20 Pulse 71 06/23/17 06:20 Resp 16 06/23/17 06:20 BP 165/97 06/23/17 06:20 Pulse Ox 97 06/23/17 06:20 Intake & Output 06/22/17 06/23/17 06/23/17 18:59 06:59 18:59 Weight 76.204 kg Other: Voiding Method Toilet Toilet Toilet # Voids 2 0 3 # Bowel Movements 0 - Exam Physical exam 72-year-old female resting in bed states less tenderness to the affected site Heart S1-S2 audible and regular Lungs essentially clear adequate air movement Abdomen obese soft nontender incontinent of urine reports no nausea vomiting nondistended right buttock lower 4 x 4 centimeters indurated area with surrounding redness less edematous no drainage from puncture site no odor noted no stool Extremities no edema noted - Labs CBC & Chem 7: 06/23/17 07:56 06/23/17 07:56 Labs: Abnormal Lab Results - Last 24 Hours (Table) 06/22/17 06/23/17 06/23/17 Range/Units 17:24 07:33 07:56 Creatinine 0.49 L (0.52-1.04) mg/dL Glucose 251 H (74-99) mg/dL POC Glucose (mg/dL) 159 H 203 H (75-99) mg/dL Alkaline Phosphatase 139 H (38-126) U/L Albumin 3.2 L (3.5-5.0) g/dL 06/23/17 Range/Units 11:52 Creatinine (0.52-1.04) mg/dL Glucose (74-99) mg/dL POC Glucose (mg/dL) 161 H (75-99) mg/dL Alkaline Phosphatase (38-126) U/L Albumin (3.5-5.0) g/dL Microbiology - Last 24 Hours (Table) 06/20/17 15:16 Blood Culture Gram Stain - Final Blood Blood Culture - Final Staphylococcus epidermidis Assessment and Plan Plan: Impression Present on admission vaginal pain suspect due to right gluteal abscess with surrounding cellulitis CAT scan pelvis suspected phlefmon in the perianal region of the lower buttocks Morbid obesity BMI 33 Type 2 diabetes uncontrolled medication noncompliance Hypertension Present on admission UTI Plan Wound care as ordered Shower daily follow-up on pending wound cultures IV antibiotics as ordered DVT and GI prophylaxis From a surgical perspective patient could be discharged home defer to the timing of the discharge to the attending Follow-up in outpatient setting with surgical service The above impression and plan of care have been discussed and directed by signing physician. Lorri Taylor nurse practitioner acting as scribe for signing physician.
[2017-06-23 16:59] LABS: Glucose,Whole Blood 133 mg/dL (75-99)
--- NOTE | 2017-06-23 17:10 | P.PN ---
Subjective Progress Note Date: 06/22/17 Progress note being dictated for Dr. Heredia. Interval history:Patient is a 72-year-old female with a past medical history of hypertension, diabetes type 2 currently not on any medications presents to the emergency department with a chief complaint of abscess to the groin area. Patient states she found this abscess when she woke up in the morning on 2016. Patient states just been getting larger and larger. Patient states that she went to her doctor was referred here. She denies any fever chills. She states she does note some burning with urination but she was recently diagnosed with a UTI. They were concerned due to the size and the discomfort so they thought they should be seen. Patient denies any recent fever, chills, shortness of breath, chest pain, back pain, abdominal pain, nausea vomiting, numbness or tingling, dysuria or hematuria, constipation or diarrhea, headaches or visual changes, or any other current symptoms. Patient hasn't been taking any medications for the past 6 months for diabetes. No recent illnesses. No sick contacts at home. 06/21/2017. Evaluated by surgery and scheduled for I&D at bedside. Pain controlled at rest. Blood sugars elevated ranging from 180s to 200s. T-max 99.2, normal WBC. Denies chest pain, palpitations or increasing shortness of breath. 06/22/2017. Status post I&D. Reports less pain today. Wound cultures pending. Afebrile. Good diet intake with no nausea vomiting. Denies chest pain, palpitations or increasing shortness of breath. Blood sugars better controlled. Objective - Vital Signs Vital signs: Vital Signs Temp 97.6 F 06/22/17 14:50 Pulse 73 06/22/17 14:50 Resp 18 06/22/17 14:50 BP 185/84 06/22/17 14:50 Pulse Ox 94 L 06/22/17 14:50 Intake & Output 06/21/17 06/22/17 06/22/17 18:59 06:59 18:59 Intake Total 200 700 Balance 200 700 Weight 76.204 kg Intake: Oral 200 700 Other: Voiding Method Toilet Toilet # Voids 1 1 2 # Bowel Movements 0 - Exam Patient is lying in the bed comfortably, no acute distress, awake alert and oriented.. HEENT: Normocephalic. Neck is supple. Pupils reactive. Nostrils clear. Oral cavity is moist. Ears reveal no drainage. Neck reveals no JVD, carotid bruits, or thyromegaly. CHEST EXAMINATION: Trachea is central. Symmetrical expansion. Lung dias clear to auscultation and percussion. CARDIAC: Normal S1, S2 with no gallops. No murmurs ABDOMEN: Soft. Bowel sounds normal. No organomegaly. No abdominal bruits. Patient does have 4 x 4 centimeters indurated area, right lower medial buttock , improving redness and warmth. no drainage. Extremities: reveal no edema. No clubbing or cyanosis Neurologically awake, alert, oriented x3 with well-coordinated movements. No focal deficits noted Skin: No rash or skin lesions. Psychiatric: Operative. Nonsuicidal Musculoskeletal: No joint swelling or deformity. Normal range of motion. - Labs CBC & Chem 7: 06/23/17 07:56 06/23/17 07:56 Labs: Abnormal Lab Results - Last 24 Hours (Table) 06/21/17 06/21/17 06/22/17 Range/Units 09:36 20:27 07:06 POC Glucose (mg/dL) 172 H 193 H (75-99) mg/dL Hemoglobin A1c 11.0 H (4.0-6.0) % 06/22/17 06/22/17 Range/Units 12:38 17:24 POC Glucose (mg/dL) 157 H 159 H (75-99) mg/dL Hemoglobin A1c (4.0-6.0) % Microbiology - Last 24 Hours (Table) 06/20/17 15:16 Blood Culture Gram Stain - Preliminary Blood Blood Culture - Preliminary Coagulase Negative Staph 06/21/17 17:00 Gram Stain - Preliminary Buttock Wound Culture - Preliminary 06/21/17 17:00 Anaerobic Culture - Preliminary Buttock 06/20/17 19:00 Urine Culture - Final Urine,Voided 06/20/17 15:19 Blood Culture - Preliminary Blood No Growth after 24 hours Assessment and Plan Assessment: #1 acute right buttock/gluteal abscess with surrounding cellulitis, status post I&D, cultures pending #2 acute urinary tract infection, present on admission #3 diabetes type 2 uncontrolled with medication noncompliance #5 hyperglycemia #5 hypertension #6 obesity with BMI 33.9 Plan: Continue on current medication regime ,monitoring and symptomatic treatment. Maintain IV antibiotics, cultures pending. Close monitoring of Accu -Cheks. Increase ambulation as tolerated. The impression and plan of care has been dictated as directed. : I performed a history and examination of this patient, discussed the same with the dictator. I agree with the dictator's note ,documented as a scribe. Any additional findings or plans will be noted.
--- NOTE | 2017-06-23 17:15 | P.PN ---
Subjective Progress Note Date: 06/23/17 Progress note being dictated for Dr. Heredia. Interval history:Patient is a 72-year-old female with a past medical history of hypertension, diabetes type 2 currently not on any medications presents to the emergency department with a chief complaint of abscess to the groin area. Patient states she found this abscess when she woke up in the morning on 2016. Patient states just been getting larger and larger. Patient states that she went to her doctor was referred here. She denies any fever chills. She states she does note some burning with urination but she was recently diagnosed with a UTI. They were concerned due to the size and the discomfort so they thought they should be seen. Patient denies any recent fever, chills, shortness of breath, chest pain, back pain, abdominal pain, nausea vomiting, numbness or tingling, dysuria or hematuria, constipation or diarrhea, headaches or visual changes, or any other current symptoms. Patient hasn't been taking any medications for the past 6 months for diabetes. No recent illnesses. No sick contacts at home. 06/21/2017. Evaluated by surgery and scheduled for I&D at bedside. Pain controlled at rest. Blood sugars elevated ranging from 180s to 200s. T-max 99.2, normal WBC. Denies chest pain, palpitations or increasing shortness of breath. 06/22/2017. Status post I&D. Reports less pain today. Wound cultures pending. Afebrile. Good diet intake with no nausea vomiting. Denies chest pain, palpitations or increasing shortness of breath. Blood sugars better controlled. 06/23/2017. Continues to do well, afebrile, cultures pending, maintained on IV antibiotics. Objective - Vital Signs Vital signs: Vital Signs Temp 97.4 F L 06/23/17 15:53 Pulse 67 06/23/17 15:53 Resp 18 06/23/17 15:53 BP 151/75 06/23/17 15:53 Pulse Ox 94 L 06/23/17 15:53 Intake & Output 06/22/17 06/23/17 06/23/17 18:59 06:59 18:59 Weight 76.204 kg Other: Voiding Method Toilet Toilet Toilet # Voids 2 0 1 # Bowel Movements 0 - Exam Patient is sitting up in the bed comfortably, no acute distress, awake alert and oriented.. HEENT: Normocephalic. Neck is supple. Pupils reactive. Nostrils clear. Oral cavity is moist. Ears reveal no drainage. Neck reveals no JVD, carotid bruits, or thyromegaly. CHEST EXAMINATION: Trachea is central. Symmetrical expansion. Lung dias clear to auscultation and percussion. CARDIAC: Normal S1, S2 with no gallops. No murmurs ABDOMEN: Soft. Bowel sounds normal. No organomegaly. No abdominal bruits. Patient does have 4 x 4 centimeters indurated area, right lower medial buttock , improving redness and warmth. no drainage, no odor. Extremities: reveal no edema. No clubbing or cyanosis Neurologically awake, alert, oriented x3 with well-coordinated movements. No focal deficits noted Skin: No rash or skin lesions. Psychiatric: Operative. Nonsuicidal Musculoskeletal: No joint swelling or deformity. Normal range of motion. - Labs CBC & Chem 7: 06/23/17 07:56 06/23/17 07:56 Labs: Abnormal Lab Results - Last 24 Hours (Table) 06/22/17 06/23/17 06/23/17 Range/Units 17:24 07:33 07:56 Creatinine 0.49 L (0.52-1.04) mg/dL Glucose 251 H (74-99) mg/dL POC Glucose (mg/dL) 159 H 203 H (75-99) mg/dL Alkaline Phosphatase 139 H (38-126) U/L Albumin 3.2 L (3.5-5.0) g/dL 06/23/17 06/23/17 Range/Units 11:52 16:51 Creatinine (0.52-1.04) mg/dL Glucose (74-99) mg/dL POC Glucose (mg/dL) 161 H 133 H (75-99) mg/dL Alkaline Phosphatase (38-126) U/L Albumin (3.5-5.0) g/dL Microbiology - Last 24 Hours (Table) 06/20/17 15:16 Blood Culture Gram Stain - Final Blood Blood Culture - Final Staphylococcus epidermidis Assessment and Plan Assessment: #1 acute right buttock/gluteal abscess with surrounding cellulitis, status post I&D, cultures pending #2 acute urinary tract infection, present on admission #3 diabetes type 2 uncontrolled with medication noncompliance #5 hyperglycemia #5 hypertension #6 obesity with BMI 33.9 Plan: Continue on current medication regime ,monitoring and symptomatic treatment. Maintain IV antibiotics. Levemir increased, close monitoring of Accu-Cheks.diabetic education. Case management to arrange for glucometer and diabetic supplies .discharge planning in progress pending culture results. Increase ambulation as tolerated. The impression and plan of care has been dictated as directed. : I performed a history and examination of this patient, discussed the same with the dictator. I agree with the dictator's note ,documented as a scribe. Any additional findings or plans will be noted.
[2017-06-23] MEDS: ACETAMINOPHEN TAB 325 MG TAB PO PRN (18:48)
[2017-06-23 20:42] LABS: Glucose,Whole Blood 160 mg/dL (75-99)
[2017-06-23] MEDS ORDERED: INSULIN DETEMIR 100 UNIT/ML 10 ML VIAL SQ SCH (21:00)
[2017-06-23 23:02] VITALS: RESP 16
[2017-06-24 07:33] LABS: Glucose,Whole Blood 103 mg/dL (75-99)
[2017-06-24] MEDS: INSULIN ASPART 100 UNIT/ML 1 ML 10 ML VIAL SQ SCH ×4 (07:35→12:53)
[2017-06-24] MEDS: PANTOPRAZOLE 40 MG TABLET PO SCH (07:35)
[2017-06-24] MEDS: HEPARIN SODIUM,PORCINE 5,000 UNIT/ML 1 ML VIAL SQ SCH (07:35)
[2017-06-24] MEDS: SODIUM CHLORIDE 0.9% 1,000 ML IV SCH (09:43)
[2017-06-24] MEDS: VANCOMYCIN 1,500 MG in SODIUM CHLORIDE 0.9% 250 ML IVPB SCH (10:37)
[2017-06-24 12:39] LABS: Glucose,Whole Blood 190 mg/dL (75-99)
--- NOTE | 2017-06-24 13:49 | P.PN ---
Progress Note - Text Progress Note Date: 06/24/17 The patient is fairly stable. Drainage. Skin lesser from the I&D site. Feels fairly comfortable. Does complain of some mild burning on urination but her urinalysis is unremarkable. On examination she is afebrile. Vitals are stable. She is in no acute distress. The abscess site feels a little indurated but I am not able to express any pus from the opening on squeezing. No cellulitis or erythema. Impression resolving abscess right perianal area status post I&D. Recommendation continued by mouth antibiotics. Can be discharged at any time from a surgical standpoint and follow up with Dr. Frank are within the next week.
[2017-06-24 15:51] VITALS: BP 126/62; PULSE 63; TEMP 98.2
--- NOTE | 2017-06-24 23:28 | P.DS ---
Providers Date of admission: 06/20/17 15:29 Expected date of discharge: 06/24/17 Attending physician: Keyur Heredia Consults: 06/20/17 18:15 Consult Physician Routine Consulting Provider: New Shay Consult Reason/Comments: gluteal abscess Do you want consulting provider notified?: Yes Primary care physician: Manasa Reynoso [facility] Course: Discharge diagnosis #1 acute right buttock/gluteal abscess with surrounding cellulitis, status post I&D #2 acute urinary tract infection, present on admission #3 diabetes type 2 uncontrolled with medication noncompliance #5 hyperglycemia #5 hypertension #6 obesity with BMI 33.9 Hospital course Interval history:Patient is a 72-year-old female with a past medical history of hypertension, diabetes type 2 currently not on any medications presents to the emergency department with a chief complaint of abscess to the groin area. Patient states she found this abscess when she woke up in the morning on 2016. Patient states just been getting larger and larger. Patient states that she went to her doctor was referred here. She denies any fever chills. She states she does note some burning with urination but she was recently diagnosed with a UTI. They were concerned due to the size and the discomfort so they thought they should be seen. Patient denies any recent fever, chills, shortness of breath, chest pain, back pain, abdominal pain, nausea vomiting, numbness or tingling, dysuria or hematuria, constipation or diarrhea, headaches or visual changes, or any other current symptoms. Patient hasn't been taking any medications for the past 6 months for diabetes. No recent illnesses. No sick contacts at home. 06/21/2017. Evaluated by surgery and scheduled for I&D at bedside. Pain controlled at rest. Blood sugars elevated ranging from 180s to 200s. T-max 99.2, normal WBC. Denies chest pain, palpitations or increasing shortness of breath. 06/22/2017. Status post I&D. Reports less pain today. Wound cultures pending. Afebrile. Good diet intake with no nausea vomiting. Denies chest pain, palpitations or increasing shortness of breath. Blood sugars better controlled. 06/23/2017. Continues to do well, afebrile, cultures pending, maintained on IV antibiotics. 06/24/2017 patient is clinically much improved. No fever no chills overnight. Wound culture showed also hemolytic streptococcus. Patient is ALLERGIC to penicillin and sulfa drugs. Blood sugar is fairly controlled. Patient was continued on antibiotics in the form of clindamycin and her blood cultures came positive for gram-positive cocci. Antibiotics were changed to vancomycin per the blood cultures turned out to be coagulase-negative staph aureus. Wound Cultures showed hemolytic streptococcus. Patient was discharged on clindamycin. Patient was also started on insulin about discharge. Glucometer and insulin needles and supplies were provided. Patient was advised to follow with primary care physician for further insulin dose adjustment. Otherwise patient is stable to be discharged home. Discharge physical examination was done Patient Condition at Discharge: Stable Plan - Discharge Summary Discharge Rx Participant: Yes New Discharge Prescriptions: New Insulin Aspart [NovoLOG (formulary)] 7 unit SQ AC-TID #1 vial Insulin Detemir [Levemir] 24 unit SQ HS #1 vial Clindamycin [Cleocin] 450 mg PO Q6H 3 Days #12 capsule Discharge Medication List Clindamycin [Cleocin] 450 mg PO Q6H 3 Days #12 capsule 06/24/17 [Rx] Insulin Aspart [NovoLOG (formulary)] 7 unit SQ AC-TID #1 vial 06/24/17 [Rx] Insulin Detemir [Levemir] 24 unit SQ HS #1 vial 06/24/17 [Rx] Follow up Appointment(s)/Referral(s): Manasa Reynoso MD [Primary Care Provider] - 1-2 days (office closed. please call office to schedule an appointment) New Shay MD [STAFF PHYSICIAN] - 1 Week (office closed. please call to schedule an appointment) Patient Instructions/Handouts: Type 2 Diabetes in Adults (DC), Abscess (GEN) Activity/Diet/Wound Care/Special Instructions: Cane and diabetic supplies ordered through [facility]: #[phone] Discharge Disposition: HOME SELF-CARE
== END 2017-06-24 17:13 | disposition home or self-care (01) | DRG 603 ==
LOC: EC 13:16 → 5MS5E 15:29 → 4MS4W 16:56
PROVIDERS: ADMIT Internal Medicine; ATTEND Internal Medicine
PROC: 0D9Q3ZZ Drainage of Anus, Percutaneous Approach (ICD-10-PCS; principal; 2017-06-20)
DX: L03.317 Cellulitis of buttock (principal); E11.65 Type 2 diabetes mellitus with hyperglycemia; N39.0 Urinary tract infection, site not specified; K61.0 Anal abscess; L02.31 Cutaneous abscess of buttock; I10 Essential (primary) hypertension; F41.9 Anxiety disorder, unspecified; F32.9 Major depressive disorder, single episode, unspecified; T38.3X6A Underdosing of insulin and oral hypoglycemic [antidiabetic] drugs, initial encounter; E66.01 Morbid (severe) obesity due to excess calories; Z88.6 Allergy status to analgesic agent; Z83.3 Family history of diabetes mellitus; Z90.49 Acquired absence of other specified parts of digestive tract; Z88.1 Allergy status to other antibiotic agents; Z88.0 Allergy status to penicillin; Z88.2 Allergy status to sulfonamides; Z87.891 Personal history of nicotine dependence; Z86.73 Personal history of transient ischemic attack (TIA), and cerebral infarction without residual deficits
CPT/HCPCS: 36415; 72192; 80053; 80202; 81001; 83036; 83605; 85025; 87040; 87070; 87075; 87077; 87086; 87186; 87205; 96365; 96368; 99284

== ENCOUNTER 2018-06-22 13:46 | Inpatient (IN) | payer MEDICARE ==
[2018-06-22] MEDS ORDERED: NITROGLYCERIN SL TABS 0.4 MG TAB SUBLINGUAL STA (14:13)
[2018-06-22] MEDS ORDERED: GLUCAGON 1 MG/ML VIAL IVP STA ×2 (14:13→15:06)
[2018-06-22] MEDS ORDERED: DIAZEPAM 5 MG/ML 2 ML INJ IVP STA (14:13)
--- NOTE | 2018-06-22 14:21 | ED ---
General Adult HPI - General Chief complaint: Recheck/Abnormal Lab/Rx Stated complaint: Choking Time Seen by Provider: 06/22/18 13:56 Source: patient, RN notes reviewed Mode of arrival: ambulatory Limitations: no limitations - History of Present Illness Initial comments: Patient 73-year-old female presented to the emergency room today with chief complaint of possible esophageal foreign body. Patient does admit that approximate 12:30 PM she was eating a chicken sandwich. She states that felt like it got stuck in her throat and she could not swallow. She states she tried coughing. She's tried to drink some water was not able to swallow with. She tried some Coca-Cola with no relief the symptoms. Patient states she is unable to tolerate her oral secretions. Has been having to spit up. Denies any difficulty breathing or shortness of breath. Denies any other complaints. Patient's blood pressure elevated at triage. Patient's daughter at bedside stating that they just picked up a new blood pressure Medication today but has not started it. Patient denies any recent fever, chills, shortness of breath, chest pain, back pain, abdominal pain, numbness or tingling, headaches or visual changes, or any other complaints. - Related Data Home Medications Medication Instructions Recorded Confirmed Acetaminophen Tab [Tylenol Tab] 500 mg PO Q6H PRN 06/22/18 06/22/18 Losartan Potassium [Cozaar] 25 mg PO DAILY 06/22/18 06/22/18 Previous Rx's Medication Instructions Recorded Insulin Aspart [NovoLOG 7 unit SQ AC-TID #1 vial 06/24/17 (formulary)] Insulin Detemir [Levemir] 24 unit SQ HS #1 vial 06/24/17 Allergies Allergy/AdvReac Type Severity Reaction Status Date / Time iodine Allergy Rash/Hives Verified 06/22/18 15:51 Penicillins Allergy Rash/Hives Verified 06/22/18 15:51 shellfish derived Allergy Rash/Hives Verified 06/22/18 15:51 Sulfa (Sulfonamide Allergy Unknown Verified 06/22/18 15:51 Antibiotics) Childhood aspirin AdvReac Nausea & Verified 06/22/18 15:51 Vomiting codeine AdvReac Unknown Verified 06/22/18 15:51 Review of Systems ROS Statement: Those systems with pertinent positive or pertinent negative responses have been documented in the HPI. ROS Other: All systems not noted in ROS Statement are negative. Past Medical History Past Medical History: Diabetes Mellitus, Hypertension, Musculoskeletal Disorder Additional Past Medical History / Comment(s): scarlet fever History of Any Multi-Drug Resistant Organisms: None Reported Past Surgical History: Section, Cholecystectomy Additional Past Surgical History / Comment(s): oral Past Anesthesia/Blood Transfusion Reactions: Previous Problems w/ Anesthesia Additional Past Anesthesia/Blood Transfusion Reaction / Comment(s): " difficulty waking" "i don't come out of aa well" Past Psychological History: Anxiety, Depression Smoking Status: Former smoker Past Alcohol Use History: None Reported Past Drug Use History: None Reported - Past Family History Father Additional Family Medical History / Comment(s): maleria his mom had dm Mother Family Medical History: Chest Pain / Angina, CVA/TIA Additional Family Medical History / Comment(s): nephritis. buristis General Exam - General Exam Comments Initial Comments: General: The patient is awake and alert. Eye: Pupils are equal, round and reactive to light. Extra-ocular movements are intact. No nystagmus. There is normal conjunctiva bilaterally. No signs of icterus. Ears, nose, mouth and throat: There are moist mucous membranes and no oral lesions. Neck: The neck is supple, there is no tenderness or JVD. Cardiovascular: There is a regular rate and rhythm. No murmur, rub or gallop is appreciated. Respiratory: Lungs are clear to auscultation, respirations are non-labored, breath sounds are equal. No wheezes, stridor, rales, or rhonchi. Musculoskeletal: Normal ROM, no tenderness. Sensation intact. Strength 5/5. Pulses equal bilaterally 2+. Neurological: A&O x 3. CN II-XII intact, There are no obvious motor or sensory deficits. Coordination appears grossly intact. Speech is normal. Skin: Skin is warm and dry and no rashes or lesions are noted. Psychiatric: Cooperative, appropriate mood & affect, normal judgment. Limitations: no limitations Course Vital Signs 06/22/18 06/22/18 06/22/18 13:48 14:00 14:04 Temperature 98 F Pulse Rate 97 Respiratory 22 18 Rate Blood Pressure 202/98 O2 Sat by Pulse 98 98 Oximetry 06/22/18 06/22/18 06/22/18 14:10 14:12 14:20 Temperature Pulse Rate 83 Respiratory 18 Rate Blood Pressure 207/135 207/135 207/135 O2 Sat by Pulse 98 99 Oximetry 06/22/18 06/22/18 06/22/18 14:30 14:50 14:52 Temperature Pulse Rate 91 Respiratory 18 Rate Blood Pressure 207/135 202/106 O2 Sat by Pulse 96 95 Oximetry 06/22/18 06/22/18 06/22/18 15:00 15:10 15:20 Temperature Pulse Rate Respiratory Rate Blood Pressure 202/106 208/90 208/90 O2 Sat by Pulse 98 98 97 Oximetry 06/22/18 06/22/18 06/22/18 15:22 15:30 15:40 Temperature Pulse Rate 88 Respiratory 18 Rate Blood Pressure 223/109 223/109 216/100 O2 Sat by Pulse 97 99 97 Oximetry 06/22/18 06/22/18 06/22/18 15:50 16:03 16:10 Temperature Pulse Rate Respiratory Rate Blood Pressure 216/100 O2 Sat by Pulse 98 92 L 98 Oximetry 06/22/18 06/22/18 06/22/18 16:20 16:50 17:00 Temperature Pulse Rate Respiratory Rate Blood Pressure 145/91 145/91 O2 Sat by Pulse 98 Oximetry 06/22/18 06/22/18 06/22/18 17:10 17:20 17:30 Temperature Pulse Rate Respiratory Rate Blood Pressure 126/82 109/79 109/79 O2 Sat by Pulse Oximetry 06/22/18 06/22/18 06/22/18 17:40 17:50 18:00 Temperature Pulse Rate 103 H 105 H Respiratory 18 18 Rate Blood Pressure 115/66 106/91 106/91 O2 Sat by Pulse 95 95 Oximetry 06/22/18 06/22/18 06/22/18 18:10 18:20 18:30 Temperature Pulse Rate 106 H 110 H Respiratory 17 13 Rate Blood Pressure 129/102 166/146 114/74 O2 Sat by Pulse 95 99 95 Oximetry 06/22/18 06/22/18 06/22/18 18:40 18:50 19:00 Temperature Pulse Rate 104 H 105 H 103 H Respiratory 9 L 18 14 Rate Blood Pressure 83/45 83/70 100/85 O2 Sat by Pulse 98 98 97 Oximetry 06/22/18 06/22/18 06/22/18 19:10 19:20 19:30 Temperature Pulse Rate 101 H 113 H 118 H Respiratory 11 L 8 L 23 Rate Blood Pressure 114/92 104/83 115/93 O2 Sat by Pulse 98 Oximetry 06/22/18 06/22/18 06/22/18 19:40 19:50 20:00 Temperature Pulse Rate 110 H 113 H 103 H Respiratory 24 21 19 Rate Blood Pressure 107/97 156/100 O2 Sat by Pulse 98 98 97 Oximetry 06/22/18 20:10 Temperature 97.4 F L Pulse Rate 87 Respiratory 13 Rate Blood Pressure 151/89 O2 Sat by Pulse 97 Oximetry - Reevaluation(s) Reevaluation #1: 06/22/18 1500 Patient was given IV glucagon, so legal nitroglycerin, and 2 mg IV Valium for her symptoms. She was given warm couple water. Unable to swallow. Case was discussed with attending physician Dr. Nichols who did discuss the case with Dr. Ness who recommended a second dose of glucagon. 1600 Patient was given second dose of glucagon and a warm couple of water to sip on. Still unable to swallow. Dr. Nichols did discuss the case once again with Dr. Ness will plan to come to see the patient. 180: Patient was in the emergency room the before scope for esophageal foreign body. Vision was on the heart monitor and showed a regular rhythm. EKG was performed showing atrial fibrillation with RVR. Patient has no known history. No old EKG to compare. 1809: Case discussed with attending physician Dr. Nichols who did discuss EKG findings with on-call bunk assembler Dr. Car. 1856: Scope was performed here in the emergency room by GI. They did remove a large piece of chicken. EKG Findings - EKG Comments: EKG Findings:: EKG performed at 1805 shows A. fib with RVR at 119 bpm. QRS is 118. QT/QTC 368/517. Repeat EKG performed at 2011: Shows sinus rhythm with first-degree AV block at 87 bpm. NH interval 218. QRS 114. QT/QTc 412/495. Medical Decision Making - Medical Decision Making Patient reexamined at this time is resting comfortable. Currently in a sinus rhythm. Patient did have a previous EKG that showed A. fib with RVR. No known history. She does admit that at times she's felt some palpitations and shortness of breath. Patient's current discomfort at this time. GI did see the patient here in the emergency room was able to remove a esophageal foreign body. Patient's labs been reviewed. Does have an elevated white count. Chest x-ray shows a pneumonia. Patient has been started on antibiotics. Patient will be admitted to the hospital with consult to cardiology. - Lab Data Result diagrams: 06/22/18 19:15 06/22/18 19:15 Lab Results 06/22/18 06/22/18 06/22/18 Range/Units 19:15 19:15 19:15 WBC 15.0 H (3.8-10.6) k/uL RBC 4.81 (3.80-5.40) m/uL Hgb 14.4 (11.4-16.0) gm/dL Hct 44.2 (34.0-46.0) % MCV 91.8 (80.0-100.0) fL MCH 30.0 (25.0-35.0) pg MCHC 32.7 (31.0-37.0) g/dL RDW 13.9 (11.5-15.5) % Plt Count 236 (150-450) k/uL Neutrophils % 89 % Lymphocytes % 7 % Monocytes % 2 % Eosinophils % 1 % Basophils % 0 % Neutrophils # 13.4 H (1.3-7.7) k/uL Lymphocytes # 1.1 (1.0-4.8) k/uL Monocytes # 0.3 (0-1.0) k/uL Eosinophils # 0.1 (0-0.7) k/uL Basophils # 0.0 (0-0.2) k/uL PT (9.0-12.0) sec INR (<1.2) APTT (22.0-30.0) sec Sodium 139 (137-145) mmol/L Potassium 3.9 (3.5-5.1) mmol/L Chloride 108 H (98-107) mmol/L Carbon Dioxide 20 L (22-30) mmol/L Anion Gap 11 mmol/L BUN 25 H (7-17) mg/dL Creatinine 0.47 L (0.52-1.04) mg/dL Est GFR (CKD-EPI)AfAm >90 (>60 ml/min/1.73 sqM) Est GFR (CKD-EPI)NonAf >90 (>60 ml/min/1.73 sqM) Glucose 213 H (74-99) mg/dL Calcium 9.2 (8.4-10.2) mg/dL Total Bilirubin 1.0 (0.2-1.3) mg/dL AST 44 H (14-36) U/L ALT 10 (9-52) U/L Alkaline Phosphatase 126 (38-126) U/L Total Creatine Kinase 125 (30-135) U/L CK-MB (CK-2) 2.9 H (0.0-2.4) ng/mL CK-MB (CK-2) Rel Index 2.3 Troponin I 0.019 (0.000-0.034) ng/mL Total Protein 6.9 (6.3-8.2) g/dL Albumin 3.7 (3.5-5.0) g/dL 06/22/18 Range/Units 19:15 WBC (3.8-10.6) k/uL RBC (3.80-5.40) m/uL Hgb (11.4-16.0) gm/dL Hct (34.0-46.0) % MCV (80.0-100.0) fL MCH (25.0-35.0) pg MCHC (31.0-37.0) g/dL RDW (11.5-15.5) % Plt Count (150-450) k/uL Neutrophils % % Lymphocytes % % Monocytes % % Eosinophils % % Basophils % % Neutrophils # (1.3-7.7) k/uL Lymphocytes # (1.0-4.8) k/uL Monocytes # (0-1.0) k/uL Eosinophils # (0-0.7) k/uL Basophils # (0-0.2) k/uL PT 9.6 (9.0-12.0) sec INR 1.0 (<1.2) APTT 18.2 L (22.0-30.0) sec Sodium (137-145) mmol/L Potassium (3.5-5.1) mmol/L Chloride (98-107) mmol/L Carbon Dioxide (22-30) mmol/L Anion Gap mmol/L BUN (7-17) mg/dL Creatinine (0.52-1.04) mg/dL Est GFR (CKD-EPI)AfAm (>60 ml/min/1.73 sqM) Est GFR (CKD-EPI)NonAf (>60 ml/min/1.73 sqM) Glucose (74-99) mg/dL Calcium (8.4-10.2) mg/dL Total Bilirubin (0.2-1.3) mg/dL AST (14-36) U/L ALT (9-52) U/L Alkaline Phosphatase (38-126) U/L Total Creatine Kinase (30-135) U/L CK-MB (CK-2) (0.0-2.4) ng/mL CK-MB (CK-2) Rel Index Troponin I (0.000-0.034) ng/mL Total Protein (6.3-8.2) g/dL Albumin (3.5-5.0) g/dL Disposition Clinical Impression: Esophageal foreign body, Aspiration pneumonia, Atrial fibrillation with RVR Disposition: ADMITTED IP TO THIS HOSP Condition: Stable Is patient prescribed a controlled substance at d/c from ED?: No Referrals: Pop Nunez MD [Primary Care Provider] - 1-2 days Time of Disposition: 20:29
[2018-06-22] MEDS ORDERED: hydrALAZINE HCL 20 MG/ML 1 ML VIAL IVP STA (15:39)
[2018-06-22] MEDS ORDERED: PROPOFOL 10 MG/ML 20 ML VIAL IV ONE (18:00)
[2018-06-22] MEDS ORDERED: SUCCINYLCHOLINE CHLORIDE 100 MG/5 ML SYR IV ONE (18:00)
[2018-06-22] MEDS ORDERED: ETOMIDATE 2 MG/ML 10 ML VIAL ONE (18:00)
[2018-06-22] MEDS ORDERED: LACTATED RINGERS 1,000 ML IV ONE (18:10)
[2018-06-22] MEDS ORDERED: SODIUM CHLORIDE 0.9% 1,000 ML IV STA (18:16)
[2018-06-22 19:39] LABS: Basophils % (A) 0 %; Eosinophils # (A) 0.1 k/uL (0-0.7); Eosinophils % (A) 1 %; HCT 44.2 % (34.0-46.0); HGB 14.4 gm/dL (11.4-16.0); Lymphocytes # (A) 1.1 k/uL (1.0-4.8); Lymphocytes % (A) 7 %; MCHC 32.7 g/dL (31.0-37.0); MCV 91.8 fL (80.0-100.0); Mean Platelet Volume 7.2; Monocytes # (A) 0.3 k/uL (0-1.0); Monocytes % (A) 2 %; Neutrophils # (A) 13.4 k/uL (1.3-7.7); Neutrophils % (A) 89 %; Platelet Count 236 k/uL (150-450); RBC 4.81 m/uL (3.80-5.40); RDW 13.9 % (11.5-15.5)
--- NOTE | 2018-06-22 19:44 | XR ---
EXAMINATION TYPE: XR chest 1V portable DATE OF EXAM: 06/22/2018 COMPARISON: NONE HISTORY: Possible foreign body in the throat TECHNIQUE: Single frontal view of the chest is obtained. FINDINGS: There is no heart failure. There is mild infiltrates in the lower lobes. This is more on t he right side. There is no pleural effusion. Bony thorax is intact. IMPRESSION: Interstitial infiltrates and atelectasis at the lung bases. No heart failure.
[2018-06-22 19:49] LABS: ALT 10 U/L (9-52); AST 44 U/L (14-36); Albumin 3.7 g/dL (3.5-5.0); Alkaline Phosphatase 126 U/L (38-126); Anion Gap 11 mmol/L; Blood Urea Nitrogen 25 mg/dL (7-17); Calcium 9.2 mg/dL (8.4-10.2); Carbon Dioxide 20 mmol/L (22-30); Chloride 108 mmol/L (98-107); Glucose 213 mg/dL (74-99); Potassium 3.9 mmol/L (3.5-5.1); Sodium 139 mmol/L (137-145); Total Protein 6.9 g/dL (6.3-8.2)
[2018-06-22 19:57] LABS: Prothrombin Time 9.6 sec (9.0-12.0)
[2018-06-22] MEDS ORDERED: BENZOCAINE/MENTHOL LOZENG 1 EACH LOZENGE MUCOUS MEM PRN (19:57)
[2018-06-22 20:04] LABS: Creatine Kinase MB 2.9 ng/mL (0.0-2.4); Troponin I 0.019 ng/mL (0.000-0.034)
[2018-06-22] MEDS ORDERED: AZITHROMYCIN 500 MG in SODIUM CHLORIDE 0.9% 250 ML IVPB STA (20:09)
[2018-06-22] MEDS ORDERED: CLINDAMYCIN 600 MG in DEXTROSE 5% IN WATER 50 ML IVPB STA ×2 (20:09)
[2018-06-22 20:18] LABS: Partial Thromboplastin Time 18.2 sec (22.0-30.0)
[2018-06-22] MEDS ORDERED: NITROGLYCERIN SL TABS 0.4 MG TAB SUBLINGUAL PRN (20:29)
[2018-06-22] MEDS ORDERED: SODIUM CHLORIDE 0.9% 1,000 ML IV ONE (20:29)
[2018-06-22] MEDS ORDERED: ASPIRIN 81 MG PO STA (20:29)
[2018-06-22] MEDS ORDERED: LEVOFLOXACIN 500MG-D5W PMX 500 MG in DEXTROSE/WATER 1 100ML.BAG IVPB STA (20:34)
[2018-06-22] MEDS ORDERED: HEPARIN SOD,PORK IN 0.45% NACL 25,000 UNIT in 0.45% NACL 1 500ML.BAG IV SCH (20:45)
[2018-06-22 22:18] LABS: Glucose,Whole Blood 188 mg/dL (75-99)
[2018-06-22] MEDS: INSULIN DETEMIR 100 UNIT/ML 10 ML VIAL SQ SCH (22:59)
[2018-06-22 23:21] VITALS: BMI 35.3
[2018-06-23] MEDS ORDERED: HEPARIN SODIUM,PORCINE 5,000 UNIT/ML 1 ML VIAL IV PRN (03:05)
[2018-06-23 03:16] LABS: Cholesterol 174 mg/dL (<200); HDL Cholesterol 68 mg/dL (40-60); LDL Cholesterol,Calculated 93 mg/dL (0-99); Triglycerides 66 mg/dL (<150)
[2018-06-23 03:28] LABS: Creatine Kinase MB 5.2 ng/mL (0.0-2.4)
[2018-06-23 04:13] LABS: Troponin I 0.48 ng/mL (0.000-0.034)
[2018-06-23] MEDS: CLINDAMYCIN 300 MG in DEXTROSE 5% IN WATER 50 ML IVPB SCH ×8 (05:12→23:13)
[2018-06-23 06:28] LABS: Glucose,Whole Blood 194 mg/dL (75-99)
[2018-06-23] MEDS: INSULIN ASPART 100 UNIT/ML 1 ML 10 ML VIAL SQ SCH ×3 (08:04→17:33)
[2018-06-23 08:17] LABS: Troponin I 0.654 ng/mL (0.000-0.034)
[2018-06-23] MEDS ORDERED: AZITHROMYCIN 500 MG in SODIUM CHLORIDE 0.9% 250 ML IVPB SCH (09:00)
[2018-06-23] MEDS ORDERED: ASPIRIN 325 MG TAB PO SCH (09:00)
--- NOTE | 2018-06-23 09:37 | P.CRDCN ---
History of Present Illness Consult date: 06/23/18 Requesting physician: Uday Ramirez Reason for Consult (text): AFib Chief complaint: esophageal obstruction History of present illness: This a pleasant 73-year-old female patient with past medical history of diabetes and hypertension. Presented to the emergency department for esophageal obstruction. Apparently she had a chicken sandwich at lunch time. She has poor dentition and has lost some teeth. She does not chew well and swallowed too big of a piece of chicken. She underwent EGD and foreign body removal in the ER. She was in the ER she was found to have paroxysmal atrial fibrillation with rapid ventricular response. She was also quite hypertensive with a systolic up to 2:30 and a diastolic blood pressure in the 130s. Chest x- ray showed bibasilar infiltrates, greater in the right than left. She has been initiated on IV antibiotics. She is also on IV heparin. Troponins came back to be elevated at 2.019, 0.48 and 0.654. No documented hypoxia. White blood cell count 15,000, BUN 25 and creatinine 0.47. She's had no complaints of chest discomfort, shortness of breath, palpitations, dizziness, lightheadedness or syncope. She does occasionally have symptoms of hypoglycemia as well as symptoms of hyperglycemia. Upon examination, patient is resting comfortably in bed. Blood pressure remains elevated at 160/110. Past Medical History Past Medical History: Diabetes Mellitus, Hypertension, Musculoskeletal Disorder Additional Past Medical History / Comment(s): scarlet fever History of Any Multi-Drug Resistant Organisms: None Reported Past Surgical History: Section, Cholecystectomy Additional Past Surgical History / Comment(s): oral Past Anesthesia/Blood Transfusion Reactions: Previous Problems w/ Anesthesia Additional Past Anesthesia/Blood Transfusion Reaction / Comment(s): " difficulty waking" "i don't come out of aa well" Past Psychological History: Anxiety, Depression Additional Psychological History / Comment(s): pt lives with dukrzysztofhter and 1 pet dog in single level home that has 2 steps. . stated they take senior but shopping twice a month and have to carry cases /large bottle of water home because their water smells foul". pt has no glucometer in which to check bs.hers is in a storage in a storage unit in [place](they attempted to move their but things did'nt work out"(pt was vague with story) Smoking Status: Former smoker Past Alcohol Use History: None Reported Additional Past Alcohol Use History / Comment(s): started smoking at age 21 and quit 2010. smoked 2 ppd. Past Drug Use History: None Reported - Past Family History Father Additional Family Medical History / Comment(s): maleyaritza his mom had dm Mother Family Medical History: Chest Pain / Angina, CVA/TIA Additional Family Medical History / Comment(s): nephritis. buristis Medications and Allergies Home Medications Medication Instructions Recorded Confirmed Type Insulin Aspart [NovoLOG 7 unit SQ AC-TID #1 vial 06/24/17 06/22/18 Rx (formulary)] Insulin Detemir [Levemir] 24 unit SQ HS #1 vial 06/24/17 06/22/18 Rx Acetaminophen Tab [Tylenol Tab] 500 mg PO Q6H PRN 06/22/18 06/22/18 History Losartan Potassium [Cozaar] 25 mg PO DAILY 06/22/18 06/22/18 History Allergies Allergy/AdvReac Type Severity Reaction Status Date / Time iodine Allergy Rash/Hives Verified 06/22/18 15:51 latex Allergy Rash/Hives Verified 06/22/18 23:29 Penicillins Allergy Rash/Hives Verified 06/22/18 15:51 shellfish derived Allergy Rash/Hives Verified 06/22/18 15:51 Sulfa (Sulfonamide Allergy Unknown Verified 06/22/18 15:51 Antibiotics) Childhood aspirin AdvReac Nausea & Verified 06/22/18 15:51 Vomiting codeine AdvReac Unknown Verified 06/22/18 15:51 Physical Exam Vitals: Vital Signs Temp Pulse Pulse Resp BP BP Pulse Ox 06/23/18 08:00 97.5 F L 88 16 161/111 95 06/23/18 03:22 98 F 80 18 145/71 96 06/23/18 00:00 97.8 F 82 18 150/77 95 06/22/18 22:19 97.4 F L 90 18 154/81 94 L 06/22/18 22:10 84 23 164/86 99 06/22/18 22:00 81 17 153/69 97 06/22/18 21:50 85 20 153/69 98 06/22/18 21:40 86 18 153/69 98 06/22/18 21:30 85 23 165/87 97 06/22/18 21:20 89 15 165/87 98 06/22/18 21:19 98.4 F 89 18 165/87 98 06/22/18 21:10 85 18 165/87 97 06/22/18 21:00 86 13 98 06/22/18 20:50 88 97 06/22/18 20:40 86 98 06/22/18 20:30 86 96 06/22/18 20:20 89 23 97 06/22/18 20:10 97.4 F L 87 13 151/89 97 06/22/18 20:00 103 H 19 156/100 97 06/22/18 19:50 113 H 21 98 06/22/18 19:40 110 H 24 107/97 98 06/22/18 19:30 118 H 23 115/93 98 06/22/18 19:20 113 H 8 L 104/83 06/22/18 19:10 101 H 11 L 114/92 06/22/18 19:00 103 H 14 100/85 97 06/22/18 18:50 105 H 18 83/70 98 06/22/18 18:40 104 H 9 L 83/45 98 06/22/18 18:30 114/74 95 06/22/18 18:20 110 H 13 166/146 99 06/22/18 18:10 106 H 17 129/102 95 06/22/18 18:00 105 H 18 106/91 95 06/22/18 17:50 103 H 18 106/91 95 06/22/18 17:40 115/66 06/22/18 17:30 109/79 06/22/18 17:20 109/79 06/22/18 17:10 126/82 06/22/18 17:00 145/91 06/22/18 16:50 145/91 06/22/18 16:20 98 06/22/18 16:10 98 06/22/18 16:03 92 L 06/22/18 15:50 216/100 98 06/22/18 15:40 216/100 97 06/22/18 15:30 223/109 99 06/22/18 15:22 88 18 223/109 97 06/22/18 15:20 208/90 97 06/22/18 15:10 208/90 98 06/22/18 15:00 202/106 98 06/22/18 14:52 91 18 106 95 06/22/18 14:50 96 06/22/18 14:30 207/135 06/22/18 14:20 207/135 06/22/18 14:12 83 18 207/135 99 06/22/18 14:10 207/135 98 06/22/18 14:04 18 06/22/18 14:00 98 06/22/18 13:48 98 F 97 98 Intake and Output 06/22/18 06/23/18 06/23/18 22:59 06:59 14:59 Intake Total 340 708.903 Balance 340 708.903 Intake: IV 300 Intake, IV Titration 40 708.903 Amount Heparin Sod,Pork in 0.45% 40 108.903 NaCl 25,000 unit In 0.45 % NaCl 1 500ml.bag @ 12 UNITS/KG/HR 19.05 mls/hr IV .Q24H [facility] Rx#: [id number] Sodium Chloride 0.9% 1, 600 000 ml @ 75 mls/hr IV . [id number] ONE Rx#:[id number] Other: Voiding Method Incontinent Incontinent Weight 79.379 kg 93.7 kg PHYSICAL EXAMINATION: HEENT: Head is atraumatic, normocephalic. Pupils equal, round. Neck is supple. There is no elevated jugular venous pressure. No carotid bruit. Poor dentition noted. HEART EXAMINATION: Heart sounds regular, S1 and S2 with a systolic murmur. CHEST EXAMINATION: Lungs are clear to auscultation and precussion. No chest wall tenderness is noted on palpation or with deep breathing. ABDOMEN: Soft, obese, nontender. Bowel sounds are heard. No organomegaly noted. EXTREMITIES: 2+ peripheral pulses with no evidence of peripheral edema and no calf tenderness noted. Petechiae noted to left hand and arm. NEUROLOGIC patient is awake, alert and oriented x3. . Results 06/22/18 19:15 06/22/18 19:15 Cardiac Enzymes 06/22/18 06/22/18 06/23/18 Range/Units 19:15 19:15 02:28 AST 44 H (14-36) U/L CK-MB (CK-2) 2.9 H 5.2 H (0.0-2.4) ng/mL Troponin I 0.019 0.480 H* (0.000-0.034) ng/mL 06/23/18 Range/Units 07:23 AST (14-36) U/L CK-MB (CK-2) 5.0 H (0.0-2.4) ng/mL Troponin I 0.654 H* (0.000-0.034) ng/mL Coagulation 06/22/18 06/23/18 Range/Units 19:15 02:28 PT 9.6 (9.0-12.0) sec APTT 18.2 L 32.9 H (22.0-30.0) sec Lipids 06/23/18 Range/Units 02:28 Triglycerides 66 (<150) mg/dL Cholesterol 174 (<200) mg/dL HDL Cholesterol 68 H (40-60) mg/dL CBC 06/22/18 Range/Units 19:15 WBC 15.0 H (3.8-10.6) k/uL RBC 4.81 (3.80-5.40) m/uL Hgb 14.4 (11.4-16.0) gm/dL Hct 44.2 (34.0-46.0) % Plt Count 236 (150-450) k/uL Comprehensive Metabolic Panel 06/22/18 Range/Units 19:15 Sodium 139 (137-145) mmol/L Potassium 3.9 (3.5-5.1) mmol/L Chloride 108 H (98-107) mmol/L Carbon Dioxide 20 L (22-30) mmol/L BUN 25 H (7-17) mg/dL Creatinine 0.47 L (0.52-1.04) mg/dL Glucose 213 H (74-99) mg/dL Calcium 9.2 (8.4-10.2) mg/dL AST 44 H (14-36) U/L ALT 10 (9-52) U/L Alkaline Phosphatase 126 (38-126) U/L Total Protein 6.9 (6.3-8.2) g/dL Albumin 3.7 (3.5-5.0) g/dL Current Medications Generic Name Dose Route Start Last Admin Trade Name Freq PRN Reason Stop Dose Admin Benzocaine/Menthol 1 each 06/22/18 19:57 06/22/18 20:14 Cepacol Lozenge MUCOUS MEM 1 each Q4HR PRN Administration Sore Throat Heparin Sodium (Porcine) 0 unit 06/23/18 03:05 06/23/18 03:11 Heparin IV 3,950 unit PER PROTOCOL PRN Administration Low PTT Protocol Ceftriaxone Sodium 1,000 mg/ 50 mls @ 100 mls/hr 06/23/18 09:00 Sodium Chloride IVPB Q24HR SHENA Clindamycin Phosphate 300 mg/ 52 mls @ 50 mls/hr 06/23/18 06:00 06/23/18 05: 12 Dextrose/Water IVPB 50 mls/hr Q6HR SHENA Administration Sodium Chloride 1,000 mls @ 75 mls/hr 06/22/18 20:29 06/22/18 22:59 Saline 0.9% IV 06/23/18 09:48 Not Given .[id number] ONE Heparin Sodium/Sodium Chloride 500 mls @ 19.05 mls/hr 06/22/18 20:45 03:04 25,000 unit/ Sodium Chloride IV 15 units/kg/hr .Q24H SHENA 23.81 mls/hr Titration Protocol 12 UNITS/KG/HR Insulin Aspart 7 unit 06/23/18 07:30 06/23/18 08:04 Novolog SQ 7 unit AC-TID SHENA Administration Insulin Detemir 24 unit 06/22/18 22:30 06/22/18 22:59 Levemir SQ 24 unit HS SHENA Administration Losartan Potassium 25 mg 06/23/18 09:00 Cozaar PO DAILY SHENA Nitroglycerin 0.4 mg 06/22/18 20:29 Nitrostat SUBLINGUAL Q5M PRN Chest Pain Intake and Output 06/22/18 06/23/18 06/23/18 22:59 06:59 14:59 Intake Total 340 708.903 Balance 340 708.903 Intake: IV 300 Intake, IV Titration 40 708.903 Amount Heparin Sod,Pork in 0.45% 40 108.903 NaCl 25,000 unit In 0.45 % NaCl 1 500ml.bag @ 12 UNITS/KG/HR 19.05 mls/hr IV .Q24H [facility] Rx#: [id number] Sodium Chloride 0.9% 1, 600 000 ml @ 75 mls/hr IV . [id number] ONE Rx#:[id number] Other: Voiding Method Incontinent Incontinent Weight 79.379 kg 93.7 kg 06/22/18 19:15 06/22/18 19:15 Assessment and Plan Assessment: #1 esophageal obstruction, status post foreign body removal #2 paroxysmal atrial fibrillation with rapid ventricular response, new #3 elevated troponins, likely due to oxygen supply and demand mismatch secondary to hypertension and Afib w/RVR although significant CAD can not be excluded at this time #4 pneumonia #5 hypertension, uncontrolled #6 diabetes mellitus #7 obesity Plan: From cardiology's perspective , we will obtain a 2-D echo with Doppler. We will stop heparin and start the patient on Eliquis 5mg po BID. We will schedule to patient for a lexiscan MPI to rule out underlying CAD. Further recommendations to follow. CHANGE PERSON note has been reviewed, I agree with a documented findings and plan of care. Patient was seen and examined.
[2018-06-23] MEDS: LOSARTAN 25 MG TAB PO SCH (09:41)
--- NOTE | 2018-06-23 10:03 | P.CONS ---
History of Present Illness - Reason for Consult Consult date: 06/22/18 Foreign body Requesting physician: Jeremy Smart - Chief Complaint Choking, food in esophagus - History of Present Illness 73-year-old female with a medical history significant for diabetes mellitus and hypertension who presents to the emergency room with complaints of food getting stuck in her food pipe. The patient reports that she was eating chicken at a [employer] when she began choking. The patient was unable to cough or vomit the food back up and subsequently came to the hospital for further evaluation. On questioning of the patient's daughter who is accompanying her says that she has had multiple episodes of food sticking in the past but has been able to pass the food eventually on her own and not required hospitalization. She's had no prior upper endoscopy or colonoscopy in the past. He reports that this happened around 12:30 pm. She denies any home proton pump inhibitor therapy. No nausea, vomiting, hematemesis, change in her bowel habits. Review of Systems REVIEW OF SYSTEMS: CONSTITUTIONAL: Denies any fevers, chills, weight change or fatigue. CARDIOVASCULAR: Denies any chest pain, palpitations high or low blood pressures RESPIRATORY: Denies any shortness of breath, hemoptysis or cough. GENITOURINARY: No dysuria or hematuria. MUSCULOSKELETAL: No weakness reported. SKIN: Denies any new rashes or lesions, jaundice or pallor. PSYCHIATRIC: Denies any depression or anxiety. NEUROLOGY: Denies headache, denies any new focal deficits. EARS/NOSE/THROAT: No recent hearing change, congestion, nasal discharge or sore throat. EYES: No pain in eyes, discharge or change in vision. GASTROINTESTINAL: As per HPI. Past Medical History Past Medical History: Diabetes Mellitus, Hypertension, Musculoskeletal Disorder Additional Past Medical History / Comment(s): scarlet fever History of Any Multi-Drug Resistant Organisms: None Reported Past Surgical History: Section, Cholecystectomy Additional Past Surgical History / Comment(s): oral Past Anesthesia/Blood Transfusion Reactions: Previous Problems w/ Anesthesia Additional Past Anesthesia/Blood Transfusion Reaction / Comm: " difficulty waking" "i don't come out of aa well" Past Psychological History: Anxiety, Depression Additional Psychological History / Comment(s): pt lives with duaghter and 1 pet dog in single level home that has 2 steps. . stated they take senior but shopping twice a month and have to carry cases /large bottle of water home because their water smells foul". pt has no glucometer in which to check bs.hers is in a storage in a storage unit in [place](they attempted to move their but things did'nt work out"(pt was vague with story) Smoking Status: Former smoker Past Alcohol Use History: None Reported Additional Past Alcohol Use History / Comment(s): started smoking at age 21 and quit 2010. smoked 2 ppd. Past Drug Use History: None Reported - Past Family History Father Additional Family Medical History / Comment(s): maleria his mom had dm Mother Family Medical History: Chest Pain / Angina, CVA/TIA Additional Family Medical History / Comment(s): nephritis. buristis Medications and Allergies Home Medications Medication Instructions Recorded Confirmed Type Insulin Aspart [NovoLOG 7 unit SQ AC-TID #1 vial 06/24/17 06/22/18 Rx (formulary)] Insulin Detemir [Levemir] 24 unit SQ HS #1 vial 06/24/17 06/22/18 Rx Acetaminophen Tab [Tylenol Tab] 500 mg PO Q6H PRN 06/22/18 06/22/18 History Losartan Potassium [Cozaar] 25 mg PO DAILY 06/22/18 06/22/18 History Allergies Allergy/AdvReac Type Severity Reaction Status Date / Time iodine Allergy Rash/Hives Verified 06/22/18 15:51 latex Allergy Rash/Hives Verified 06/22/18 23:29 Penicillins Allergy Rash/Hives Verified 06/22/18 15:51 shellfish derived Allergy Rash/Hives Verified 06/22/18 15:51 Sulfa (Sulfonamide Allergy Unknown Verified 06/22/18 15:51 Antibiotics) Childhood aspirin AdvReac Nausea & Verified 06/22/18 15:51 Vomiting codeine AdvReac Unknown Verified 06/22/18 15:51 Physical Exam Vitals: Vital Signs Temp Pulse Pulse Resp BP BP Pulse Ox 06/22/18 22:19 97.4 F L 90 18 154/81 94 L 06/22/18 22:10 84 23 164/86 99 06/22/18 22:00 81 17 153/69 97 06/22/18 21:50 85 20 153/69 98 06/22/18 21:40 86 18 153/69 98 06/22/18 21:30 85 23 165/87 97 06/22/18 21:20 89 15 165/87 98 06/22/18 21:19 98.4 F 89 18 165/87 98 06/22/18 21:10 85 18 165/87 97 06/22/18 21:00 86 13 98 06/22/18 20:50 88 97 06/22/18 20:40 86 98 06/22/18 20:30 86 96 06/22/18 20:20 89 23 97 06/22/18 20:10 97.4 F L 87 13 151/89 97 06/22/18 20:00 103 H 19 156/100 97 06/22/18 19:50 113 H 21 98 06/22/18 19:40 110 H 24 107/97 98 06/22/18 19:30 118 H 23 115/93 98 06/22/18 19:20 113 H 8 L 104/83 06/22/18 19:10 101 H 11 L 114/92 06/22/18 19:00 103 H 14 100/85 97 06/22/18 18:50 105 H 18 83/70 98 06/22/18 18:40 104 H 9 L 83/45 98 06/22/18 18:30 114/74 95 06/22/18 18:20 110 H 13 166/146 99 06/22/18 18:10 106 H 17 129/102 95 06/22/18 18:00 105 H 18 106/91 95 06/22/18 17:50 103 H 18 106/91 95 06/22/18 17:40 115/66 06/22/18 17:30 109/79 06/22/18 17:20 109/79 06/22/18 17:10 126/82 06/22/18 17:00 145/91 06/22/18 16:50 145/91 06/22/18 16:20 98 06/22/18 16:10 98 06/22/18 16:03 92 L 06/22/18 15:50 216/100 98 06/22/18 15:40 216/100 97 06/22/18 15:30 223/109 99 06/22/18 15:22 88 18 223/109 97 06/22/18 15:20 208/90 97 06/22/18 15:10 208/90 98 06/22/18 15:00 98 06/22/18 14:52 91 18 95 06/22/18 14:50 96 06/22/18 14:30 135 06/22/18 14:20 207/135 06/22/18 14:12 83 18 99 06/22/18 14:10 /135 98 06/22/18 14:04 18 06/22/18 14:00 98 06/22/18 13:48 98 F 97 98 Intake and Output 06/22/18 06/22/18 06/23/18 14:59 22:59 06:59 Intake Total 300 Balance 300 Intake: IV 300 Other: Weight 79.379 kg 79.379 kg On physical examination, patient appears uncomfortable with difficulty tolerating secretions. HEAD: Normocephalic, atraumatic. EYES: No scleral icterus. No conjunctival injection. MOUTH: No lesions, tongue midline. NECK: Trachea midline, no gross abnormalities. CHEST: Clear to auscultation with no wheezing or rhonchi appreciated. HEART: Regular rate and rhythm. ABDOMEN: Soft, obese. Bowel sounds are positive. No organomegaly. No guarding or rigidity. EXTREMITIES: No pedal edema. SKIN: No rashes, no jaundice. NEUROLOGIC: Alert and oriented x3. No focal deficits. Results CBC & Chem 7: 06/22/18 19:15 06/22/18 19:15 Labs: Abnormal Lab Results - Last 24 Hours (Table) 06/22/18 06/22/18 06/22/18 Range/Units 19:15 19:15 19:15 WBC 15.0 H (3.8-10.6) k/uL Neutrophils # 13.4 H (1.3-7.7) k/uL APTT (22.0-30.0) sec Chloride 108 H (98-107) mmol/L Carbon Dioxide 20 L (22-30) mmol/L BUN 25 H (7-17) mg/dL Creatinine 0.47 L (0.52-1.04) mg/dL Glucose 213 H (74-99) mg/dL POC Glucose (mg/dL) (75-99) mg/dL AST 44 H (14-36) U/L CK-MB (CK-2) 2.9 H (0.0-2.4) ng/mL 06/22/18 06/22/18 Range/Units 19:15 22:15 WBC (3.8-10.6) k/uL Neutrophils # (1.3-7.7) k/uL APTT 18.2 L (22.0-30.0) sec Chloride (98-107) mmol/L Carbon Dioxide (22-30) mmol/L BUN (7-17) mg/dL Creatinine (0.52-1.04) mg/dL Glucose (74-99) mg/dL POC Glucose (mg/dL) 188 H (75-99) mg/dL AST (14-36) U/L CK-MB (CK-2) (0.0-2.4) ng/mL Assessment and Plan (1) Esophageal foreign body Narrative/Plan: Patient presenting after eating chicken with esophageal foreign body and difficulty managing own secretions. Per the patient and her daughter who is accompanying her to the hospital she's had multiple episodes of food sitting in the past but was able to relieve the obstruction on her own without coming to the hospital. On this occasion the patient was unable to pass the food and had to come to the hospital for treatment. No home PPI use. Current Visit: Yes Status: Acute Code(s): T18.108A - UNSP FOREIGN BODY IN ESOPHAGUS CAUSING OTH INJURY, INIT SNOMED Code(s): 66062181 Plan: Supportive care Nothing by mouth Plan for urgent upper endoscopy Further recommendations pending findings of upper endoscopy Patient would likely benefit from follow-up with gastroenterology given long- standing history of intermittent solid food dysphagia Thank you for allowing us to participate in the care of this patient, we will continue to follow
--- NOTE | 2018-06-23 10:17 | P.PCN ---
Date of Procedure: 06/22/18 Description of Procedure: BRIEF HISTORY: Patient is a 73-year-old, pleasant, female with medical history significant for diabetes mellitus and hypertension who presents to the hospital with complaints of esophageal foreign body. Per the patient and her daughter who is accompanying her to the hospital the two were eating a chicken lunch at [facility] when the patient had difficulty swallowing the food which she was eating. Per the patient's daughter this has happened multiple times in the past however on those occasions the patient was able to pass the food without evaluation at a hospital. On this occasion however the patient had difficulty swallowing and tolerating her own secretions and presented for further evaluation. No prior history of endoscopic evaluation with either upper endoscopy or colonoscopy. No history of PPI or H2 sangita therapy. PROCEDURE PERFORMED: Esophagogastroduodenoscopy with esophageal foreign body removal. PREOPERATIVE DIAGNOSIS: Esophageal foreign body. ESTIMATED BLOOD LOSS: Minimal. IV sedation per anesthesia. Gen. anesthesia (per the recommendations of the anesthesia Department was felt that the patient would be safer if she was intubated for the procedure instead of MAC) PROCEDURE: After informed consent was obtained, the patient was brought into the endoscopy unit. IV sedation was administered by Anesthesia under continuous monitoring. Initially the Olympus GIF-190 video endoscope was inserted into the mouth. Esophagus intubated without any difficulty. In the proximal esophagus approximately 20 cm from the incisors a large almost completely obstructing piece of chicken was seen. Initially attempts were made to advance the food into the stomach, however the after this method proves unsuccessful attempts were made to remove the food through the patient's mouth with rat tooth forceps , snare, basket and ultimately biopsy forceps. Multiple passes were taken with pieces of the food removed with the biopsy forceps. Ultimately the food was small enough that it could be advanced through the esophagus with gentle pressure into the stomach. At this time the endoscopy was completed. The bulb and the second part of the duodenum appeared normal. The scope at this time was withdrawn to the stomach, adequately insufflated with air, and upon careful examination, mucosa of the antrum, body, cardia and the fundus appeared normal, with retained food noted. The scope was then withdrawn into the esophagus. The GE junction was located at 38 cm from the incisors. The esophagus appeared normal, except for diminutive pieces of food debris as well as erythema and edema in the proximal esophagus at the site of previous food impaction. The patient tolerated the procedure well. IMPRESSION: 1. Esophageal foreign body, with food bolus impacted in the proximal esophagus. This was treated with cold forcep removal of multiple pieces of the food impaction and subsequent advancement of the food bolus into the stomach with gentle pressure. No biopsies were taken. RECOMMENDATIONS: The findings of this examination were discussed with the patient and her daughter. We'll start Protonix 40 mg daily. Okay for diet, would start with a full liquid diet and advance as tolerated. Outpatient follow-up with gastroenterology, with recommendation for repeat EGD with esophageal biopsy. Outpatient colonoscopy.
[2018-06-23 11:47] LABS: Glucose,Whole Blood 176 mg/dL (75-99)
[2018-06-23] MEDS: PANTOPRAZOLE 40 MG TABLET PO SCH (12:11)
[2018-06-23] MEDS: APIXABAN 5 MG TAB PO SCH ×2 (12:26→20:04)
--- NOTE | 2018-06-23 13:32 | P.CNPUL ---
History of Present Illness Consult date: 06/23/18 Requesting physician: Uday Ramirez Reason for consult: abnormal CXR/CT Chief complaint: Cough, choking on chicken History of present illness: This a very pleasant 73-year-old female patient who follows with Dr. Nunez as her primary care physician. She has a history of hypertension, diabetes mellitus and anxiety. She presented here yesterday afternoon after choking on a piece of chicken. She did undergo EGD with removal of the food product. Her chest x-ray shows some interstitial infiltrates and atelectasis at the lung bases and there was some concern regarding aspiration pneumonia and we're consulted for the same. She was initiated on clindamycin and ceftriaxone. She is seen today in consultation on the selective care unit. She is awake and alert in no acute distress. She denies any worsening shortness of breath, cough or congestion. He is maintaining good O2 saturations in the upper 90s on room air. She's afebrile. White count 15.0. Hemoglobin 14.4. Creatinine 0.47. Troponin 0.480, 0.654. She did have an episode of atrial fibrillation and was on a heparin drip and since converted to Eliquis. Review of Systems 14 point review of system was conducted. All negative other than as mentioned in HPI. Past Medical History Past Medical History: Diabetes Mellitus, Hypertension, Musculoskeletal Disorder Additional Past Medical History / Comment(s): scarlet fever History of Any Multi-Drug Resistant Organisms: None Reported Past Surgical History: Section, Cholecystectomy Additional Past Surgical History / Comment(s): oral Past Anesthesia/Blood Transfusion Reactions: Previous Problems w/ Anesthesia Additional Past Anesthesia/Blood Transfusion Reaction / Comment(s): " difficulty waking" "i don't come out of aa well" Past Psychological History: Anxiety, Depression Additional Psychological History / Comment(s): pt lives with leslyhtmitesh and 1 pet dog in single level home that has 2 steps. . stated they take senior but shopping twice a month and have to carry cases /large bottle of water home because their water smells foul". pt has no glucometer in which to check bs.hers is in a storage in a storage unit in [place](they attempted to move their but things did'nt work out"(pt was vague with story) Smoking Status: Former smoker Past Alcohol Use History: None Reported Additional Past Alcohol Use History / Comment(s): started smoking at age 21 and quit 2010. smoked 2 ppd. Past Drug Use History: None Reported - Past Family History Father Additional Family Medical History / Comment(s): malecarmena his mom had dm Mother Family Medical History: Chest Pain / Angina, CVA/TIA Additional Family Medical History / Comment(s): nephritis. buristis Medications and Allergies Home Medications Medication Instructions Recorded Confirmed Type Insulin Aspart [NovoLOG 7 unit SQ AC-TID #1 vial 06/24/17 06/22/18 Rx (formulary)] Insulin Detemir [Levemir] 24 unit SQ HS #1 vial 06/24/17 06/22/18 Rx Acetaminophen Tab [Tylenol Tab] 500 mg PO Q6H PRN 06/22/18 06/22/18 History Losartan Potassium [Cozaar] 25 mg PO DAILY 06/22/18 06/22/18 History Allergies Allergy/AdvReac Type Severity Reaction Status Date / Time iodine Allergy Rash/Hives Verified 06/22/18 15:51 latex Allergy Rash/Hives Verified 06/22/18 23:29 Penicillins Allergy Rash/Hives Verified 06/22/18 15:51 shellfish derived Allergy Rash/Hives Verified 06/22/18 15:51 Sulfa (Sulfonamide Allergy Unknown Verified 06/22/18 15:51 Antibiotics) Childhood aspirin AdvReac Nausea & Verified 06/22/18 15:51 Vomiting codeine AdvReac Unknown Verified 06/22/18 15:51 Physical Exam Vitals: Vital Signs Temp Pulse Pulse Resp BP BP Pulse Ox 06/23/18 12:00 97.9 F 84 16 185/113 97 06/23/18 08:00 97.5 F L 88 16 161/111 95 06/23/18 03:22 98 F 80 18 145/71 96 06/23/18 00:00 97.8 F 82 18 150/77 95 06/22/18 22:19 97.4 F L 90 18 154/81 94 L 06/22/18 22:10 84 23 164/86 99 06/22/18 22:00 81 17 153/69 97 06/22/18 21:50 85 20 153/69 98 06/22/18 21:40 86 18 153/69 98 06/22/18 21:30 85 23 165/87 97 06/22/18 21:20 89 15 165/87 98 06/22/18 21:19 98.4 F 89 18 165/87 98 06/22/18 21:10 85 18 165/87 97 06/22/18 21:00 86 13 98 06/22/18 20:50 88 97 06/22/18 20:40 86 98 06/22/18 20:30 86 96 06/22/18 20:20 89 23 97 06/22/18 20:10 97.4 F L 87 13 151/89 97 06/22/18 20:00 103 H 19 156/100 97 06/22/18 19:50 113 H 21 98 06/22/18 19:40 110 H 24 107/97 98 06/22/18 19:30 118 H 23 115/93 98 06/22/18 19:20 113 H 8 L 104/83 06/22/18 19:10 101 H 11 L 114/92 06/22/18 19:00 103 H 14 100/85 97 06/22/18 18:50 105 H 18 83/70 98 06/22/18 18:40 104 H 9 L 83/45 98 06/22/18 18:30 114/74 95 06/22/18 18:20 110 H 13 166/146 99 06/22/18 18:10 106 H 17 129/102 95 06/22/18 18:00 105 H 18 106/91 95 06/22/18 17:50 103 H 18 106/91 95 06/22/18 17:40 115/66 06/22/18 17:30 109/79 06/22/18 17:20 109/79 06/22/18 17:10 126/82 06/22/18 17:00 145/91 06/22/18 16:50 145/91 06/22/18 16:20 98 06/22/18 16:10 98 06/22/18 16:03 92 L 06/22/18 15:50 216/100 98 06/22/18 15:40 216/100 97 06/22/18 15:30 223/109 99 06/22/18 15:22 88 18 223/109 97 06/22/18 15:20 208/90 97 06/22/18 15:10 208/90 98 06/22/18 15:00 202/106 98 11/09/18 14:52 91 18 106 95 06/22/18 14:50 96 06/22/18 14:30 207/135 06/22/18 14:20 207/135 06/22/18 14:12 83 18 207/135 99 06/22/18 14:10 207/135 98 06/22/18 14:04 18 06/22/18 14:00 98 06/22/18 13:48 98 F 97 98 Intake and Output 06/22/18 06/23/18 06/23/18 22:59 06:59 14:59 Intake Total 340 708.903 240 Balance 340 708.903 240 Intake: IV 300 Intake, IV Titration 40 708.903 Amount Heparin Sod,Pork in 0.45% 40 108.903 NaCl 25,000 unit In 0.45 % NaCl 1 500ml.bag @ 12 UNITS/KG/HR 19.05 mls/hr IV .Q24H [facility] Rx#: [id number] Sodium Chloride 0.9% 1, 600 000 ml @ 75 mls/hr IV . [id number] ONE Rx#:[id number] Oral 240 Other: Voiding Method Incontinent Incontinent Weight 79.379 kg 93.7 kg GENERAL EXAM: Alert, active, comfortable in no apparent distress. HEAD: Normocephalic. EYES: Normal reaction of pupils, equal size. NOSE: Clear with pink turbinates. THROAT: No erythema or exudates. NECK: No masses, no JVD. CHEST: No chest wall deformity. LUNGS: Equal air entry with no crackles, wheeze, rhonchi or dullness. CVS: S1 and S2 normal with no audible murmur, regular rhythm. ABDOMEN: No hepatosplenomegaly, normal bowel sounds, no guarding or rigidity. SPINE: No scoliosis or deformity SKIN: No rashes CENTRAL NERVOUS SYSTEM: No focal deficits, tone is normal in all 4 extremities. EXTREMITIES: There is no peripheral edema. No clubbing, no cyanosis. Peripheral pulses are intact. Results - Laboratory Findings CBC and BMP: 06/22/18 19:15 06/22/18 19:15 PT/INR, D-dimer PT 9.6 sec (9.0-12.0) 06/22/18 19:15 INR 1.0 (<1.2) 06/22/18 19:15 Abnormal lab findings: Abnormal Labs 06/22/18 06/22/18 06/22/18 19:15 19:15 19:15 WBC 15.0 H Neutrophils # 13.4 H APTT Chloride 108 H Carbon Dioxide 20 L BUN 25 H Creatinine 0.47 L Glucose 213 H POC Glucose (mg/dL) AST 44 H Total Creatine Kinase CK-MB (CK-2) 2.9 H Troponin I HDL Cholesterol 06/22/18 06/22/18 06/23/18 19:15 22:15 02:28 WBC Neutrophils # APTT 18.2 L Chloride Carbon Dioxide BUN Creatinine Glucose POC Glucose (mg/dL) 188 H AST Total Creatine Kinase 168 H CK-MB (CK-2) 5.2 H Troponin I 0.480 H* HDL Cholesterol 06/23/18 06/23/18 06/23/18 02:28 02:28 06:26 WBC Neutrophils # APTT 32.9 H Chloride Carbon Dioxide BUN Creatinine Glucose POC Glucose (mg/dL) 194 H AST Total Creatine Kinase CK-MB (CK-2) Troponin I HDL Cholesterol 68 H 06/23/18 06/23/18 06/23/18 07:23 10:09 11:37 WBC Neutrophils # APTT 48.9 H Chloride Carbon Dioxide BUN Creatinine Glucose POC Glucose (mg/dL) 176 H AST Total Creatine Kinase 192 H CK-MB (CK-2) 5.0 H Troponin I 0.654 H* HDL Cholesterol - Diagnostic Findings Chest x-ray: image reviewed Assessment and Plan Assessment: Impression: #1 Dysphagia secondary to a piece of chicken stuck in her throat. Status post EGD with removal. #2 Shortness of breath secondary to above. Chest x-ray reveals some atelectatic changes in the bases but no evidence of aspiration pneumonia. #3 Atrial fibrillation initiated on Eliquis. #4 History of hypertension. #5 Troponin leak. #6 Diabetes mellitus. #7 History of anxiety. Plan: The patient was seen and evaluated by Dr. Fonseca. Chest x-ray and labs were reviewed. Doubt any aspiration pneumonia. She could be discharged home from the pulmonary standpoint. She could complete a course of empiric oral antibiotics. Cardiology is on the case regarding the A. fib and troponin leak are planning a stress test. I, the cosigning physician, performed a history & physical examination of the patient. Lungs sounds are clear. Maintaining good O2 saturations in the 90s on room air. I discussed the assessment and plan of care with my nurse practitioner, Veronica Martinez. I attest to the above consultation as dictated by her. Time with Patient: Greater than 30
--- NOTE | 2018-06-23 15:47 | ECHOF ---
Referral Reason:afib, NSTEMI MEASUREMENTS -------- HEIGHT: 149.9 cm WEIGHT: 93.4 kg BP: IVSd: 0.9 cm (0.6 - 1.1) LVIDd: 4.0 cm (3.9 - 5.3) LVPWd: 0.9 cm (0.6 - 1.1) IVSs: 1.3 cm LVIDs: 2.5 cm LVPWs: 1.2 cm LAESV Index (A-L): 35.88 ml/m Ao Diam: 3.1 cm (2.0 - 3.7) AV Cusp: 1.4 cm (1.5 - 2.6) LA Diam: 3.6 cm (2.7 - 3.8) MV E Luis: 1.43 m/s MV DecT: 257 ms MV A Luis: 1.54 m/s MV E/A Ratio: 0.93 RAP: 5.00 mmHg RVSP: 16.65 mmHg FINDINGS -------- Sinus rhythm. This was a technically adequate study. The left ventricular size is normal. Left ventricular wall thickness is normal. Overall left vent ricular systolic function is normal with, an EF between 55 - 60 %. The right ventricle is normal in size and function. LA is moderately dilated 34-39 ml/m2 The right atrium is normal in size. There is mild aortic valve sclerosis. There is no evidence of aortic regurgitation. There is no e vidence of aortic stenosis. The mitral valve leaflets are mildly thickened. Mild mitral regurgitation is present. Trace tricuspid regurgitation present. Right ventricular systolic pressure is normal at < 35 mmHg. There is no evidence of pulmonary hypertension. The pulmonic valve was not well visualized. The aortic root size is normal. Normal inferior vena cava with normal inspiratory collapse consistent with estimated right atrial pre ssure of 5 mmHg. There is no pericardial effusion. CONCLUSIONS -------- 1. Sinus rhythm. 2. This was a technically adequate study. 3. The left ventricular size is normal. 4. Left ventricular wall thickness is normal. 5. Overall left ventricular systolic function is normal with, an EF between 55 - 60 %. 6. LA is moderately dilated 34-39 ml/m2 7. There is mild aortic valve sclerosis. 8. The mitral valve leaflets are mildly thickened. 9. Mild mitral regurgitation is present. 10. Trace tricuspid regurgitation present. 11. Right ventricular systolic pressure is normal at < 35 mmHg. 12. There is no evidence of pulmonary hypertension. 13. The pulmonic valve was not well visualized. 14. The aortic root size is normal. 15. There is no pericardial effusion. ROAD ROLLER OPERATOR: Tremaine Silverman RDCS
[2018-06-23 16:40] LABS: Glucose,Whole Blood 164 mg/dL (75-99)
[2018-06-23] MEDS ORDERED: IPRATROPIUM-ALBUTEROL 3 ML NEB INHALATION PRN (18:01)
--- NOTE | 2018-06-23 18:01 | P.HPIM ---
History of Present Illness H&P Date: 06/23/18 Chief Complaint: aspiration pneumonia/A. fib with RVR This is a 73-year-old female one of Dr. lawson's patient with a previous medical history significant for hypertension and hypertensive cardiovascular disease with left ventricular hypertrophy, diabetes mellitus type 2, poor dentition, patient apparently choked on a piece of chicken after she was eating at chicken sandwich with her daughter at lunch and she ended up coming to the ER because of choking episode, she ended up having an EGD in the ER for the removal of the piece of the chicken and while she is in the ER she had an EKG that showed atrial fibrillation with rapid response, chest x-ray showed bibasilar infiltrates greater the right than the left suggestive of possible aspiration pneumonia, patient was given IV anabiotic in the form of Rocephin and clindamycin was admitted to the hospital for evaluation by pulmonary and cardiology she was placed on heparin drip as well and she was switched over to Eliquis, and the patient is laying down in bed at this point in no apparent distress she denies any chest pain she continues to have some pain in the left side of the neck were she choked on the chicken, and she continued to have minimal cough minimal shortness breath, she has no abdominal pain at this point . Review of Systems Constitutional: Denies anorexia, Denies chronic headaches, Denies lethargy, Denies weakness Eyes: denies blurred vision, denies bulging eye, denies decreased vision Ears: deny: decreased hearing Ears, nose, mouth and throat: Reports dysphagia, Reports sore throat, Denies neck fullness/pressure, Denies neck lump, Denies vertigo Cardiovascular: Reports dyspnea on exertion, Reports irregular heart beat, Reports rapid heart beat, Reports shortness of breath, Denies chest pain, Denies decreased exercise tolerance, Denies phlebitis Respiratory: Reports congestion, Reports cough, Reports cough with sputum, Reports sleep apnea, Denies home oxygen, Denies snoring, Denies wheezing Gastrointestinal: Denies abdominal pain, Denies bloating, Denies early satiety, Denies melena, Denies nausea, Denies vomiting Genitourinary: Denies dysuria, Denies hematuria Menstruation: Reports postmenopausal Musculoskeletal: Denies myalgias Musculoskeletal: absent: ankle pain, ankle stiffness, ankle swelling, elbow pain , elbow stiffness, elbow swelling, foot pain, foot stiffness, foot swelling, hand pain, hand stiffness, hand swelling, hip pain, hip stiffness, hip swelling , knee pain, knee stiffness, knee swelling, shoulder pain, shoulder stiffness, shoulder swelling, wrist pain, wrist stiffness, wrist swelling Integumentary: Denies pruritus, Denies rash Neurological: Denies numbness, Denies weakness Psychiatric: Denies anxiety, Denies depression Endocrine: Denies fatigue, Denies weight change Past Medical History Past Medical History: Diabetes Mellitus, Hypertension, Musculoskeletal Disorder Additional Past Medical History / Comment(s): scarlet fever, diabetes mellitus type 2, hypertension and hypertensive cardio vascular disease, diabetic polyneuropathy, obesity. History of Any Multi-Drug Resistant Organisms: None Reported Past Surgical History: Section, Cholecystectomy Additional Past Surgical History / Comment(s): oral surgery, laparoscopic abdominal evaluation, emergency . Past Anesthesia/Blood Transfusion Reactions: Previous Problems w/ Anesthesia Additional Past Anesthesia/Blood Transfusion Reaction / Comment(s): " difficulty waking" "i don't come out of aa well" Past Psychological History: Anxiety, Depression Additional Psychological History / Comment(s): pt lives with morris and 1 pet dog in single level home that has 2 steps. . stated they take senior but shopping twice a month and have to carry cases /large bottle of water home because their water smells foul". pt has no glucometer in which to check bs.hers is in a storage in a storage unit in [place](they attempted to move their but things did'nt work out"(pt was vague with story) Smoking Status: Former smoker Past Alcohol Use History: None Reported Additional Past Alcohol Use History / Comment(s): started smoking at age 21 and quit 2010. smoked 2 ppd. Past Drug Use History: None Reported - Past Family History Father Family Medical History: Unable to Obtain (father from malaria in the service.) Additional Family Medical History / Comment(s): maleria his mom had dm Mother Family Medical History: Chest Pain / Angina (mother had history of and stable angina as well as nephritis and she ended up dying at age of 67 from CVA.), CVA/ TIA Additional Family Medical History / Comment(s): nephritis. buristis Brother(s) Family Medical History: No Reported History (patient had one brother who in [place] .) Sister(s) Family Medical History: No Reported History (patient has one sister.) Daughter(s) Family Medical History: No Reported History (patient has 2 daughters no major medical problems) Son(s) Family Medical History: No Reported History (patient had one son who committed suicide.) Medications and Allergies Home Medications Medication Instructions Recorded Confirmed Type Insulin Aspart [NovoLOG 7 unit SQ AC-TID #1 vial 06/24/17 06/22/18 Rx (formulary)] Insulin Detemir [Levemir] 24 unit SQ HS #1 vial 06/24/17 06/22/18 Rx Acetaminophen Tab [Tylenol Tab] 500 mg PO Q6H PRN 06/22/18 06/22/18 History Losartan Potassium [Cozaar] 25 mg PO DAILY 06/22/18 06/22/18 History Allergies Allergy/AdvReac Type Severity Reaction Status Date / Time iodine Allergy Rash/Hives Verified 06/22/18 15:51 latex Allergy Rash/Hives Verified 06/22/18 23:29 Penicillins Allergy Rash/Hives Verified 06/22/18 15:51 shellfish derived Allergy Rash/Hives Verified 06/22/18 15:51 Sulfa (Sulfonamide Allergy Unknown Verified 06/22/18 15:51 Antibiotics) Childhood aspirin AdvReac Nausea & Verified 06/22/18 15:51 Vomiting codeine AdvReac Unknown Verified 06/22/18 15:51 Physical Exam Vitals: Vital Signs Temp Pulse Pulse Resp BP BP Pulse Ox 06/23/18 12:00 97.9 F 84 16 185/113 97 06/23/18 08:00 97.5 F L 88 16 161/111 95 06/23/18 03:22 98 F 80 18 145/71 96 06/23/18 00:00 97.8 F 82 18 150/77 95 06/22/18 22:19 97.4 F L 90 18 154/81 94 L 06/22/18 22:10 84 23 164/86 99 06/22/18 22:00 81 17 153/69 97 06/22/18 21:50 85 20 153/69 98 06/22/18 21:40 86 18 153/69 98 06/22/18 21:30 85 23 165/87 97 06/22/18 21:20 89 15 165/87 98 06/22/18 21:19 98.4 F 89 18 165/87 98 06/22/18 21:10 85 18 165/87 97 06/22/18 21:00 86 13 98 06/22/18 20:50 88 97 06/22/18 20:40 86 98 06/22/18 20:30 86 96 06/22/18 20:20 89 23 97 06/22/18 20:10 97.4 F L 87 13 151/89 97 06/22/18 20:00 103 H 19 156/100 97 06/22/18 19:50 113 H 21 98 06/22/18 19:40 110 H 24 107/97 98 06/22/18 19:30 118 H 23 115/93 98 06/22/18 19:20 113 H 8 L 104/83 06/22/18 19:10 101 H 11 L 114/92 06/22/18 19:00 103 H 14 100/85 97 06/22/18 18:50 105 H 18 83/70 98 06/22/18 18:40 104 H 9 L 83/45 98 06/22/18 18:30 114/74 95 06/22/18 18:20 110 H 13 166/146 99 06/22/18 18:10 106 H 17 129/102 95 06/22/18 18:00 105 H 18 106/91 95 06/22/18 17:50 103 H 18 106/91 95 06/22/18 17:40 115/66 06/22/18 17:30 109/79 06/22/18 17:20 109/79 06/22/18 17:10 126/82 06/22/18 17:00 145/91 06/22/18 16:50 145/91 06/22/18 16:20 98 06/22/18 16:10 98 06/22/18 16:03 92 L 06/22/18 15:50 216/100 98 06/22/18 15:40 216/100 97 06/22/18 15:30 223/109 99 06/22/18 15:22 88 18 223/109 97 06/22/18 15:20 208/90 97 06/22/18 15:10 208/90 98 06/22/18 15:00 202/106 98 06/22/18 14:52 91 18 202/106 95 06/22/18 14:50 96 06/22/18 14:30 207/135 06/22/18 14:20 207/135 06/22/18 14:12 83 18 207/135 99 06/22/18 14:10 207/135 98 06/22/18 14:04 18 06/22/18 14:00 98 06/22/18 13:48 98 F 97 98 Intake and Output 06/22/18 06/23/18 06/23/18 22:59 06:59 14:59 Intake Total 340 708.903 240 Balance 340 708.903 240 Intake: IV 300 Intake, IV Titration 40 708.903 Amount Heparin Sod,Pork in 0.45% 40 108.903 NaCl 25,000 unit In 0.45 % NaCl 1 500ml.bag @ 12 UNITS/KG/HR 19.05 mls/hr IV .Q24H [facility] Rx#: [id number] Sodium Chloride 0.9% 1, 600 000 ml @ 75 mls/hr IV . [id number] ONE Rx#:[id number] Oral 240 Other: Voiding Method Incontinent Incontinent Weight 79.379 kg 93.7 kg - Constitutional General appearance: mild distress, obese - EENT Eyes: anicteric sclerae, EOMI, PERRLA, no ptosis, no scleral icterus, normal appearance ENT: hearing grossly normal, NA/AT, normal oropharynx, no thrush Ears: bilateral: normal - Neck Neck: no lymphadenopathy, normal ROM, no rigidity, no stridor, no thyromegaly Carotids: bilateral: upstroke normal Thyroid: bilateral: normal size - Respiratory Respiratory: bilateral: diminished, rhonchi, negative: dullness, rales, wheezing , prolonged expiration - Cardiovascular Rhythm: regular Heart sounds: normal: S1, S2 Abnormal Heart Sounds: systolic murmur - Gastrointestinal General gastrointestinal: normal bowel sounds, soft, no splenomegaly, no tenderness, no umbilical hernia - Integumentary Integumentary: normal, normal turgor - Neurologic Neurologic: CNII-XII intact - Musculoskeletal Musculoskeletal: generalized weakness, strength equal bilaterally - Psychiatric Psychiatric: A&O x's 3, appropriate affect, intact judgment & insight Results CBC & Chem 7: 06/22/18 19:15 06/22/18 19:15 Labs: Abnormal Lab Results - Last 24 Hours (Table) 06/22/18 06/22/18 06/22/18 Range/Units 19:15 19:15 19:15 WBC 15.0 H (3.8-10.6) k/uL Neutrophils # 13.4 H (1.3-7.7) k/uL APTT (22.0-30.0) sec Chloride 108 H (98-107) mmol/L Carbon Dioxide 20 L (22-30) mmol/L BUN 25 H (7-17) mg/dL Creatinine 0.47 L (0.52-1.04) mg/dL Glucose 213 H (74-99) mg/dL POC Glucose (mg/dL) (75-99) mg/dL AST 44 H (14-36) U/L Total Creatine Kinase (30-135) U/L CK-MB (CK-2) 2.9 H (0.0-2.4) ng/mL Troponin I (0.000-0.034) ng/mL HDL Cholesterol (40-60) mg/dL 06/22/18 06/22/18 06/23/18 Range/Units 19:15 22:15 02:28 WBC (3.8-10.6) k/uL Neutrophils # (1.3-7.7) k/uL APTT 18.2 L (22.0-30.0) sec Chloride (98-107) mmol/L Carbon Dioxide (22-30) mmol/L BUN (7-17) mg/dL Creatinine (0.52-1.04) mg/dL Glucose (74-99) mg/dL POC Glucose (mg/dL) 188 H (75-99) mg/dL AST (14-36) U/L Total Creatine Kinase 168 H (30-135) U/L CK-MB (CK-2) 5.2 H (0.0-2.4) ng/mL Troponin I 0.480 H* (0.000-0.034) ng/mL HDL Cholesterol (40-60) mg/dL 06/23/18 06/23/18 06/23/18 Range/Units 02:28 02:28 06:26 WBC (3.8-10.6) k/uL Neutrophils # (1.3-7.7) k/uL APTT 32.9 H (22.0-30.0) sec Chloride (98-107) mmol/L Carbon Dioxide (22-30) mmol/L BUN (7-17) mg/dL Creatinine (0.52-1.04) mg/dL Glucose (74-99) mg/dL POC Glucose (mg/dL) 194 H (75-99) mg/dL AST (14-36) U/L Total Creatine Kinase (30-135) U/L CK-MB (CK-2) (0.0-2.4) ng/mL Troponin I (0.000-0.034) ng/mL HDL Cholesterol 68 H (40-60) mg/dL 06/23/18 06/23/18 06/23/18 Range/Units 07:23 10:09 11:37 WBC (3.8-10.6) k/uL Neutrophils # (1.3-7.7) k/uL APTT 48.9 H (22.0-30.0) sec Chloride (98-107) mmol/L Carbon Dioxide (22-30) mmol/L BUN (7-17) mg/dL Creatinine (0.52-1.04) mg/dL Glucose (74-99) mg/dL POC Glucose (mg/dL) 176 H (75-99) mg/dL AST (14-36) U/L Total Creatine Kinase 192 H (30-135) U/L CK-MB (CK-2) 5.0 H (0.0-2.4) ng/mL Troponin I 0.654 H* (0.000-0.034) ng/mL HDL Cholesterol (40-60) mg/dL Thrombosis Risk Factor Assmnt - DVT/VTE Prophylaxis DVT/VTE Prophylaxis: Pharmacologic Prophylaxis ordered, Mechanical Prophylaxis ordered - Choose All That Apply Any of the Below Risk Factors Present?: No Other Risk Factors: Yes Each Risk Factor Represents 2 Points: Age 61-74 years, Laparoscopic surgery Other congenital or acquired thrombophilia - If yes, enter type in comment: No Thrombosis Risk Factor Assessment Total Risk Factor Score: 4 Thrombosis Risk Factor Assessment Level: Moderate Risk Assessment and Plan Assessment: Assessment and plan: 1. Dysphagia secondary to be 7 chicken stuck in her throat status post EGD and removal of the former. Patient was advised to chew the food very well and try to take small sips of water at a time. 2. A. fib with RVR. Patient was placed on heparin drip initially, she was given IV Lopressor in the emergency department and subsequent she was switched to normal sinus rhythm and the patient was switched over to Eliquis 5 mg orally twice every day. 3. Aspiration pneumonia. Continue patient on DuoNeb 3 mg 4 times every day, continue with the clindamycin and Rocephin for now, pulmonary consultation appreciated. 4. Hypertension and hypertensive cardio vascular disease. Continue losartan 25 mg orally once every day. 5. Diabetes mellitus type 2. Continue patient on Levemir 24 units at bedtime along with the Humalog 7 units before each meal 3 times every day, continue to monitor the patient before each meal and at bedtime. 6. Diabetic polyneuropathy. Stable. 7. DVT prophylaxis. Continue Eliquis. 8. GI prophylaxis. Continue with PPI. 9. Admit to inpatient. Estimated length of stay 2 midnights. 10. Patient is full code.
[2018-06-23 18:28] LABS: Hemoglobin A1C 5.8 % (4.0-6.0)
[2018-06-23 20:14] LABS: Glucose,Whole Blood 88 mg/dL (75-99)
[2018-06-23] MEDS: INSULIN DETEMIR 100 UNIT/ML 10 ML VIAL SQ SCH (21:38)
[2018-06-24 06:04] LABS: Glucose,Whole Blood 79 mg/dL (75-99)
[2018-06-24 06:13] LABS: Basophils # (A) 0.1 k/uL (0-0.2); Basophils % (A) 1 %; Eosinophils % (A) 0 %; HCT 39.4 % (34.0-46.0); HGB 13.1 gm/dL (11.4-16.0); Lymphocytes # (A) 3.4 k/uL (1.0-4.8); Lymphocytes % (A) 32 %; MCH 30.3 pg (25.0-35.0); MCHC 33.1 g/dL (31.0-37.0); MCV 91.4 fL (80.0-100.0); Mean Platelet Volume 6.5; Monocytes # (A) 0.4 k/uL (0-1.0); Monocytes % (A) 4 %; Neutrophils # (A) 6.3 k/uL (1.3-7.7); Neutrophils % (A) 60 %; Platelet Count 241 k/uL (150-450); RBC 4.31 m/uL (3.80-5.40); RDW 14.2 % (11.5-15.5); WBC 10.5 k/uL (3.8-10.6)
[2018-06-24] MEDS: CLINDAMYCIN 300 MG in DEXTROSE 5% IN WATER 50 ML IVPB SCH ×8 (06:16→23:14)
[2018-06-24] MEDS: INSULIN ASPART 100 UNIT/ML 1 ML 10 ML VIAL SQ SCH ×3 (06:23→16:42)
[2018-06-24] MEDS: PANTOPRAZOLE 40 MG TABLET PO SCH (06:23)
[2018-06-24 06:26] LABS: ALT 30 U/L (9-52); AST 30 U/L (14-36); Albumin 3.4 g/dL (3.5-5.0); Alkaline Phosphatase 69 U/L (38-126); Anion Gap 6 mmol/L; Blood Urea Nitrogen 20 mg/dL (7-17); Calcium 9.1 mg/dL (8.4-10.2); Carbon Dioxide 26 mmol/L (22-30); Chloride 109 mmol/L (98-107); Glucose 86 mg/dL (74-99); Potassium 3.7 mmol/L (3.5-5.1); Sodium 141 mmol/L (137-145); Total Bilirubin 0.5 mg/dL (0.2-1.3); Total Protein 6.3 g/dL (6.3-8.2)
[2018-06-24] MEDS: LOSARTAN 25 MG TAB PO SCH (08:47)
[2018-06-24] MEDS: APIXABAN 5 MG TAB PO SCH ×2 (08:47→20:44)
--- NOTE | 2018-06-24 11:03 | P.PN ---
Subjective Progress Note Date: 06/24/18 This is a 73-year-old female one of Dr. lawson's patient with a previous medical history significant for hypertension and hypertensive cardiovascular disease with left ventricular hypertrophy, diabetes mellitus type 2, poor dentition, patient apparently choked on a piece of chicken after she was eating at chicken sandwich with her daughter at lunch and she ended up coming to the ER because of choking episode, she ended up having an EGD in the ER for the removal of the piece of the chicken and while she is in the ER she had an EKG that showed atrial fibrillation with rapid response, chest x-ray showed bibasilar infiltrates greater the right than the left suggestive of possible aspiration pneumonia, patient was given IV anabiotic in the form of Rocephin and clindamycin was admitted to the hospital for evaluation by pulmonary and cardiology she was placed on heparin drip as well and she was switched over to Eliquis, and the patient is laying down in bed at this point in no apparent distress she denies any chest pain she continues to have some pain in the left side of the neck were she choked on the chicken, and she continued to have minimal cough minimal shortness breath, she has no abdominal pain at this point . 06/24: Patient is sitting up in bed in no apparent distress she denies any chest pain or any shortness breath she had an episode of accelerated hypertension today her losartan was increased to 50 mg orally once every day she went down to 160/70 took extra dose of losartan as well as she has no chest pain or shortness breath she has no coughing she has no edema she has no orthopnea or PND. Objective - Vital Signs Vital signs: Vital Signs Temp 98.1 F 06/24/18 08:00 Pulse 92 06/24/18 08:00 Resp 18 06/24/18 08:00 BP 206/98 06/24/18 08:01 Pulse Ox 97 06/24/18 08:00 Intake & Output 06/23/18 06/24/18 06/24/18 18:59 06:59 18:59 Intake Total 770 530 240 Balance 770 530 240 Weight 94.7 kg Intake: Intake, IV Titration 50 50 Amount Clindamycin 300 mg In 50 Dextrose 5% in Water 50 ml @ 50 mls/hr IVPB Q6HR [facility] Rx#:[id number] Clindamycin 600 mg In 50 Dextrose 5% in Water 50 ml @ 50 mls/hr IVPB ONCE STA Rx#:[id number] Oral 720 480 240 Other: Voiding Method Incontinent Incontinent Incontinent # Voids 2 - Exam - Constitutional General appearance: mild distress, obese - EENT Eyes: anicteric sclerae, EOMI, PERRLA, no ptosis, no scleral icterus, normal appearance ENT: hearing grossly normal, NA/AT, normal oropharynx, no thrush Ears: bilateral: normal - Neck Neck: no lymphadenopathy, normal ROM, no rigidity, no stridor, no thyromegaly Carotids: bilateral: upstroke normal Thyroid: bilateral: normal size - Respiratory Respiratory: bilateral: diminished, rhonchi, negative: dullness, rales, wheezing , prolonged expiration - Cardiovascular Rhythm: regular Heart sounds: normal: S1, S2 Abnormal Heart Sounds: systolic murmur - Gastrointestinal General gastrointestinal: normal bowel sounds, soft, no splenomegaly, no tenderness, no umbilical hernia - Integumentary Integumentary: normal, normal turgor - Neurologic Neurologic: CNII-XII intact - Musculoskeletal Musculoskeletal: generalized weakness, strength equal bilaterally - Psychiatric Psychiatric: A&O x's 3, appropriate affect, intact judgment & insight - Labs CBC & Chem 7: 06/24/18 05:42 06/24/18 05:42 Labs: Abnormal Lab Results - Last 24 Hours (Table) 06/23/18 06/23/18 06/24/18 Range/Units 11:37 16:37 05:42 Chloride 109 H (98-107) mmol/L BUN 20 H (7-17) mg/dL POC Glucose (mg/dL) 176 H 164 H (75-99) mg/dL Albumin 3.4 L (3.5-5.0) g/dL Microbiology - Last 24 Hours (Table) 06/22/18 20:13 Blood Culture Gram Stain - Preliminary Blood 06/22/18 20:13 Blood Culture - Final Blood Assessment and Plan Assessment: Assessment and plan: 1. Dysphagia secondary to a piece of chicken stuck in her throat status post EGD and removal of the former. Patient was advised to chew the food very well and try to take small sips of water at a time. 2. A. fib with RVR. Patient was placed on heparin drip initially, she was given IV Lopressor in the emergency department and subsequent she was switched to normal sinus rhythm and the patient was switched over to Eliquis 5 mg orally twice every day. 3. Aspiration pneumonia. Continue patient on DuoNeb 3 mg 4 times every day, continue with the clindamycin and Rocephin for now, pulmonary consultation appreciated. 4. Hypertension and hypertensive cardiovascular disease. Increase losartan to 50 mg orally once every day monitor the blood pressure very closely. 5. Diabetes mellitus type 2. Continue patient on Levemir 24 units at bedtime along with the Humalog 7 units before each meal 3 times every day, continue to monitor the patient before each meal and at bedtime. 6. Diabetic polyneuropathy. Stable. 7. DVT prophylaxis. Continue Eliquis. 8. GI prophylaxis. Continue with PPI. 9. Home tomorrow morning.
[2018-06-24] MEDS ORDERED: LOSARTAN 25 MG TAB PO STA (11:07)
[2018-06-24 11:51] LABS: Glucose,Whole Blood 98 mg/dL (75-99)
[2018-06-24 16:37] LABS: Glucose,Whole Blood 109 mg/dL (75-99)
[2018-06-24 20:36] LABS: Glucose,Whole Blood 152 mg/dL (75-99)
[2018-06-24] MEDS: METOPROLOL TARTRATE 50 MG TAB PO SCH (20:44)
[2018-06-24] MEDS: INSULIN DETEMIR 100 UNIT/ML 10 ML VIAL SQ SCH (21:33)
--- NOTE | 2018-06-25 01:38 | PN ---
PROGRESS NOTE DATE OF SERVICE: 06/24/2018 HISTORY: This patient is admitted after a history of choking. The patient had a mildly elevated troponin level. Echocardiogram revealed overall normal left ventricular systolic functions without any wall motion abnormality. PHYSICAL EXAMINATION: The patient's blood pressure still remains elevated. It is 159/103 mmHg. First and second heart sounds are normal lungs are clear to auscultation and percussion. Patient's echocardiogram shows overall normal left ventricular systolic function without any wall motion abnormality. ASSESSMENT AND PLAN: The patient has a mild elevation in the troponin, which could be secondary to tachycardia and elevated blood pressure. Patient's echocardiogram is normal, patient was advised to have a Lexiscan Cardiolite study, but at this point in time she does not want to have anything done and she wants to continue with medical treatment. She will be followed up in the office. ROHIT / KASSY: [id number] /
[2018-06-25] MEDS: PANTOPRAZOLE 40 MG TABLET PO SCH (06:08)
[2018-06-25] MEDS: INSULIN ASPART 100 UNIT/ML 1 ML 10 ML VIAL SQ SCH ×2 (06:08→12:53)
[2018-06-25] MEDS: CLINDAMYCIN 300 MG in DEXTROSE 5% IN WATER 50 ML IVPB SCH ×4 (06:08→12:53)
[2018-06-25 06:09] LABS: Glucose,Whole Blood 134 mg/dL (75-99)
[2018-06-25 06:13] LABS: Anion Gap 11 mmol/L; Calcium 9.2 mg/dL (8.4-10.2); Carbon Dioxide 18 mmol/L (22-30); Chloride 110 mmol/L (98-107); Glucose 130 mg/dL (74-99); Sodium 139 mmol/L (137-145); Total Bilirubin 0.7 mg/dL (0.2-1.3)
[2018-06-25 06:20] LABS: Basophils # (A) 0.1 k/uL (0-0.2); Basophils % (A) 1 %; Eosinophils # (A) 0.2 k/uL (0-0.7); Eosinophils % (A) 2 %; HCT 41.6 % (34.0-46.0); HGB 13.8 gm/dL (11.4-16.0); Lymphocytes # (A) 2.6 k/uL (1.0-4.8); Lymphocytes % (A) 28 %; MCH 30.8 pg (25.0-35.0); MCHC 33.1 g/dL (31.0-37.0); Mean Platelet Volume 6.4; Monocytes # (A) 0.6 k/uL (0-1.0); Monocytes % (A) 6 %; Neutrophils # (A) 5.5 k/uL (1.3-7.7); Neutrophils % (A) 60 %; Platelet Count 202 k/uL (150-450); RBC 4.47 m/uL (3.80-5.40); WBC 9.1 k/uL (3.8-10.6)
[2018-06-25 06:23] LABS: ALT 17 U/L (9-52); AST 42 U/L (14-36); Albumin 3.3 g/dL (3.5-5.0); Alkaline Phosphatase 77 U/L (38-126); Blood Urea Nitrogen 18 mg/dL (7-17); Potassium 4.7 mmol/L (3.5-5.1); Total Protein 6.6 g/dL (6.3-8.2)
[2018-06-25] MEDS: METOPROLOL TARTRATE 50 MG TAB PO SCH (08:38)
[2018-06-25] MEDS: APIXABAN 5 MG TAB PO SCH (08:38)
[2018-06-25] MEDS ORDERED: LOSARTAN 50 MG TAB PO SCH (09:00)
[2018-06-25 09:26] VITALS: BP 179/74; PULSE 65; RESP 16; TEMP 97
[2018-06-25] MEDS ORDERED: amLODIPine 5 MG TAB PO SCH (11:00)
[2018-06-25 12:03] LABS: Glucose,Whole Blood 130 mg/dL (75-99)
--- NOTE | 2018-06-25 14:33 | PN ---
PROGRESS NOTE This patient is feeling better, denies any chest pain, denies any shortness of breath. Patient's echocardiogram revealed normal left ventricular systolic function. Blood pressure is 179/74 mmHg. First and second heart sounds are heard. Lungs are clinically clear to auscultation and percussion. Patient does not want to have a stress test done. I will add amlodipine 5 mg daily to control the blood pressure. MMODL / IJN: [id number] /
--- NOTE | 2018-06-26 08:17 | P.DS ---
Providers Date of admission: 06/22/18 21:46 Expected date of discharge: 06/25/18 Attending physician: Uday Ramirez Consults: 06/22/18 19:34 Consult Physician Stat Consulting Provider: Blair Car Consult Reason/Comments: a fib Do you want consulting provider notified?: Yes 06/22/18 20:33 Consult Physician Stat Consulting Provider: Mariposa Grant Consult Reason/Comments: Aspiration pneumonia Do you want consulting provider notified?: Yes Primary care physician: [facility] Course: This is a 73-year-old female one of Dr. lawson's patient with a previous medical history significant for hypertension and hypertensive cardiovascular disease with left ventricular hypertrophy, diabetes mellitus type 2, poor dentition, patient apparently choked on a piece of chicken after she was eating at chicken sandwich with her daughter at lunch and she ended up coming to the ER because of choking episode, she ended up having an EGD in the ER for the removal of the piece of the chicken and while she is in the ER she had an EKG that showed atrial fibrillation with rapid response, chest x-ray showed bibasilar infiltrates greater the right than the left suggestive of possible aspiration pneumonia, patient was given IV anabiotic in the form of Rocephin and clindamycin was admitted to the hospital for evaluation by pulmonary and cardiology she was placed on heparin drip as well and she was switched over to Eliquis, and the patient is laying down in bed at this point in no apparent distress she denies any chest pain she continues to have some pain in the left side of the neck were she choked on the chicken, and she continued to have minimal cough minimal shortness breath, she has no abdominal pain at this point . 06/24: Patient is sitting up in bed in no apparent distress she denies any chest pain or any shortness breath she had an episode of accelerated hypertension today her losartan was increased to 50 mg orally once every day she went down to 160/70 took extra dose of losartan as well as she has no chest pain or shortness breath she has no coughing she has no edema she has no orthopnea or PND. 06/25: Echocardiogram reveals EF is 55-60% with mild aortic valve sclerosis, LA moderately dilated 34-39, trace tricuspid regurgitation, right ventricular systolic pressure is normal, no pulmonary hypertension. Patient has been seen and followed by cardiology. Elevated troponin secondary to tachycardia and elevated blood pressure. Patient has been advised to have a Lexiscan Cardiolite stress test but she declined and will follow-up in the office. Blood pressure this morning was 162/87. monitor tech is sinus rhythm running in the 60s. White count is 9.1, hemoglobin 13.8. BUN 18 creatinine 0.49. Capillary blood glucose between 109 and 152. Patient denies any chest pain or shortness of breath. No lower extremity edema or calf pain. She did have a bowel movement yesterday. Patient will be discharged home today in stable condit Discharge diagnoses: 1. Dysphagia secondary to a piece of chicken stuck in her throat status post EGD and removal of the former. 2. A. fib with RVR, paroxysmal atrial fibrillation. 3. Aspiration pneumonia. 4. Hypertension and hypertensive cardiovascular disease. 5. Diabetes mellitus type 2. 6. Diabetic polyneuropathy. Discharge plan: Home Impression and plan of care have been directed as dictated by the signing physician. Jessica Bright nurse practitioner acting as scribe for signing physician. Patient Condition at Discharge: Good Plan - Discharge Summary New Discharge Prescriptions: New Apixaban [Eliquis] 5 mg PO BID #60 tab Benzocaine/Menthol Lozeng [Cepacol lozenge] 1 each MUCOUS MEM Q4HR PRN lozenge PRN Reason: Sore Throat Losartan [Cozaar] 50 mg PO DAILY #30 tab Metoprolol Tartrate [Lopressor] 50 mg PO BID #60 tab Moxifloxacin HCl [Avelox] 400 mg PO DAILY #10 tablet Pantoprazole Sodium [Protonix] 40 mg PO DAILY #30 tablet. Continue Insulin Aspart [NovoLOG (formulary)] 7 unit SQ AC-TID #1 vial Insulin Detemir [Levemir] 24 unit SQ HS #1 vial Acetaminophen Tab [Tylenol] 500 mg PO Q6H PRN PRN Reason: Pain Discontinued Losartan Potassium [Cozaar] 25 mg PO DAILY Discharge Medication List Insulin Aspart [NovoLOG (formulary)] 7 unit SQ AC-TID #1 vial 06/24/17 [Rx] Insulin Detemir [Levemir] 24 unit SQ HS #1 vial 06/24/17 [Rx] Acetaminophen Tab [Tylenol] 500 mg PO Q6H PRN 06/22/18 [History] Apixaban [Eliquis] 5 mg PO BID #60 tab 06/25/18 [Rx] Benzocaine/Menthol Lozeng [Cepacol lozenge] 1 each MUCOUS MEM Q4HR PRN lozenge 06/25/18 [Rx] Losartan [Cozaar] 50 mg PO DAILY #30 tab 06/25/18 [Rx] Metoprolol Tartrate [Lopressor] 50 mg PO BID #60 tab 06/25/18 [Rx] Moxifloxacin HCl [Avelox] 400 mg PO DAILY #10 tablet 06/25/18 [Rx] Pantoprazole Sodium [Protonix] 40 mg PO DAILY #30 tablet. 06/25/18 [Rx] Follow up Appointment(s)/Referral(s): [facility], [NON-STAFF] - Pop Nunez MD [Primary Care Provider] - 07/02/18 1:30 pm (Monday) Blair Car MD [STAFF PHYSICIAN] - 07/09/18 11:30 am (Monday) Patient Instructions/Handouts: A-fib (Atrial Fibrillation) (DC), Safe Use of Anticoagulants (DC) Activity/Diet/Wound Care/Special Instructions: Eliquis is covered - filled at [facility] - copay $8.35 Discharge Disposition: HOME WITH HOME HEALTH SERVICES
== END 2018-06-25 16:16 | disposition home health service (06) | DRG 178 ==
LOC: EC 13:46 → 3SCARD 21:46
PROVIDERS: ADMIT Internal Medicine Geriatric Medicine; ATTEND Internal Medicine Geriatric Medicine
PROC: 0DC58ZZ Extirpation of Matter from Esophagus, Via Natural or Artificial Opening Endoscopic (ICD-10-PCS; principal; 2018-06-22 17:30)
DX: J69.0 Pneumonitis due to inhalation of food and vomit (principal); Z68.41 Body mass index [BMI] 40.0-44.9, adult; J98.11 Atelectasis; I24.8 Other forms of acute ischemic heart disease; I48.0 Paroxysmal atrial fibrillation; E11.42 Type 2 diabetes mellitus with diabetic polyneuropathy; E66.9 Obesity, unspecified; F32.9 Major depressive disorder, single episode, unspecified; F41.9 Anxiety disorder, unspecified; I11.9 Hypertensive heart disease without heart failure; I25.10 Atherosclerotic heart disease of native coronary artery without angina pectoris; K22.2 Esophageal obstruction; T18.128A Food in esophagus causing other injury, initial encounter; Z79.4 Long term (current) use of insulin; Z82.3 Family history of stroke; Z83.3 Family history of diabetes mellitus; Z87.891 Personal history of nicotine dependence; R13.10 Dysphagia, unspecified; K08.439 Partial loss of teeth due to caries, unspecified class; M79.9 Soft tissue disorder, unspecified; Z79.899 Other long term (current) drug therapy; I08.2 Rheumatic disorders of both aortic and tricuspid valves; I44.0 Atrioventricular block, first degree; Z88.2 Allergy status to sulfonamides; Z88.8 Allergy status to other drugs, medicaments and biological substances; Z88.6 Allergy status to analgesic agent; Z91.040 Latex allergy status; Z88.5 Allergy status to narcotic agent; Z88.0 Allergy status to penicillin; Z91.013 Allergy to seafood
CPT/HCPCS: 36415; 43247; 71045; 80053; 80061; 82550; 82553; 83036; 83735; 84484; 85025; 85610; 85730; 87040; 87077; 87186; 93005; 93306; 96361; 96365; 96367; 96368; 96375; 96376; 99285